=== PATIENT | female | born 1980 | race Caucasian/White ===

== ENCOUNTER → 2018-04-14 13:48 | Outpatient (REF) | payer OTHER, SELFPAY ==
[2018-04-14 14:40] LABS: Basophils # 0.1 K/mm3 (0-0.2); Basophils % 0.5 % (0.1-2.0); Eosinophils # 0.4 K/mm3 (0.0-0.4); Eosinophils % 3.1 % (0.1-12.0); Hematocrit 44.5 % (37.0-47.0); Hemoglobin 14.5 g/dL (12.2-16.2); Lymphocytes # 3.5 K/mm3 (0.7-4.5); Lymphocytes % 29.9 K/mm3 (10-50); Mean Corpuscular HGB Conc 32.7 g/dL (31.8-35.4); Mean Corpuscular Hemoglobin 29.5 pg (27.0-31.2); Mean Corpuscular Volume 90.3 fl (81-99); Monocytes # 0.6 K/mm3 (0.1-1.0); Monocytes % 5.1 % (1.7-9.3); Neutrophils # 7.1 K/mm3 (1.8-7.8); Neutrophils % 61.5 % (37.0-80.0); Platelet Count 270 K/mm3 (142-424); Red Blood Count 4.92 M/mm3 (4.20-5.40); Red Cell Distribution Width 13.2 % (11.5-17.5); White Blood Count 11.6 K/mm3 (4.8-10.8)
[2018-04-14 15:30] LABS: Alanine Aminotransferase 59 U/L (12-78); Albumin Level 3.7 gm/dL (3.4-5.0); Alkaline Phosphatase 81 U/L (46-116); Anion Gap 14.4 mEq/L (5-15); Aspartate Amino Transferase 34 U/L (15-37); Bilirubin,Total 0.9 mg/dL (0.2-1.0); Blood Urea Nitrogen 10 mg/dL (7-18); Calcium 8.9 mg/dL (8.5-10.1); Carbon Dioxide 27 mmol/L (21.0-32.0); Chloride 104 mmol/L (98-107); Chol/HDL Ratio 3.4 (1-3.5); Cholesterol 140 mg/dL (140-200); Creatinine,Serum 0.59 mg/dL (0.55-1.02); Estimated Glomerular Filt Rate 114 ml/min (>60); GFR (African American) 138 ML/MIN (>60); Globulin 3.7 gm/dl (1.3-3.2); Glucose 150 mg/dL (74-106); HDL Cholesterol 41 mg/dL (29-89); LDL Cholesterol 90 mg/dL (0-130); Potassium 4.4 mmoL/L (3.5-5.1); Sodium 141 mmol/L (136-145); Thyroid Stimulating Hormone 0.99 uIU/ml (0.358-3.740); Total Protein,Serum 7.4 gm/dL (6.4-8.2); Triglycerides 47 mg/dL (30-200); VLDL Cholesterol 9 mg/dL (0-40)
[2018-04-16 09:27] LABS: Vitamin D 25 Hydroxy 52.3 ng/mL (30.0-100.0)
== END ==
LOC: LAB 13:48
PROVIDERS: Visit Provider Nurse Practitioner Family
DX: R53.83 Other fatigue (principal); Z76.89 Persons encountering health services in other specified circumstances; R03.0 Elevated blood-pressure reading, without diagnosis of hypertension
CPT/HCPCS: 80053; 80061; 82652; 83036; 84436; 84443; 85025

== ENCOUNTER → 2018-06-01 07:58 | Outpatient (CLI) | payer OTHER, SELFPAY ==
--- NOTE | 2018-06-01 08:00 | AS_ITS ---
Renal Arterial Duplex Indications: 405.91 Unspecified renovascular hypertension. IMPRESSIONS 1. Normal bilateral renal artery evaluation. 2. The right renal artery appears normal. 3. The left renal artery appears normal. History: Risk factors: Hypertension. Complete renal arterial duplex. Duplex scan and Doppler flow study including spectral analysis, color and mclaughlin scale imaging. Height: Height: 152.4cm. Height: 60in. Weight: Weight: 120.2kg. Weight: 264.4lb. Body mass index: BMI: 51.8kg/m^2. Body surface area: BSA: 2.34m^2. Patient status: Outpatient. Tables: Arterial flow: + +--------+--------+ Location V sys V ed + +--------+--------+ Right renal - proximal 50.4cm/s 18.5cm/s + +--------+--------+ Right renal - mid 47.1cm/s 14.6cm/s + +--------+--------+ Right renal - distal 48cm/s 17.8cm/s + +--------+--------+ Left renal - proximal 99.3cm/s 34cm/s + +--------+--------+ Left renal - mid 85.5cm/s 31.4cm/s + +--------+--------+ Left renal - distal 93.8cm/s 20.4cm/s + +--------+--------+ Right renal-origin 119cm/s 44.8cm/s + +--------+--------+ Left renal-origin 87.1cm/s 32cm/s + +--------+--------+ Aorta-Prox 112cm/s -------- + +--------+--------+ Renal anatomy: + +-------+-------+ Left Right + +-------+-------+ Long axis 13.71cm 11.71cm + +-------+-------+ Short axis 8.5cm 8.1cm + +-------+-------+ Cortical thickness 2.5cm 1.9cm + +-------+-------+ Velocity ratios: + +-----+ V sys + +-----+ Right renal/aortic 1.1 + +-----+ Left renal/aortic 0.9 + +-----+ (Report amended ) Electronically signed by: Cornel Johnson [id number]
== END ==
PROVIDERS: PCP Emergency Medicine; Visit Provider Nurse Practitioner Family
DX: R03.0 Elevated blood-pressure reading, without diagnosis of hypertension (principal)
CPT/HCPCS: 93976

== ENCOUNTER → 2018-07-20 13:49 | Outpatient (CLI) | payer OTHER, SELFPAY ==
[2018-07-20 14:12] LABS: Hemoglobin A1C 9.3 % (0.0-7.0)
== END ==
PROVIDERS: Visit Provider Nurse Practitioner Family
DX: R73.9 Hyperglycemia, unspecified (principal); I10 Essential (primary) hypertension; R00.0 Tachycardia, unspecified
CPT/HCPCS: 83036

== ENCOUNTER → 2018-07-25 09:44 | Outpatient (CLI) | payer OTHER, SELFPAY | PROVIDERS: PCP Nurse Practitioner Family; Visit Provider Nurse Practitioner Family | DX: Z71.3 Dietary counseling and surveillance (principal); E11.9 Type 2 diabetes mellitus without complications | CPT/HCPCS: 97802 ==

== ENCOUNTER → 2018-08-04 09:46 | Outpatient (CLI) | payer OTHER, SELFPAY ==
--- NOTE | 2018-08-04 09:49 | CA_ITS ---
PROCEDURE: 2-D M-mode and color Doppler study INDICATIONS FOR THE TEST: Chest pain+ COPD Heart Murmur Tobacco Smoking Palpitations+ Fatigue Syncope Edema Hypertension+Diabetes Mellitus+ Rheumatic Fever SOB CARMONA+Obesity+Hyperlipidemia+ Family History HD Additional History PATIENT INFORMATION HEIGHT: 60 WEIGHT: 255 GENDER: Female B/P: 123/86 2-D/M-MODE INTERPRETATION: 2-D MEASUREMENTS OBSERVED VALUES IN CMS Right Ventricular Dimension (RVDd) 2.4 Interventricular Septum (Thickness)(IVsd) 1.0 Left Ventricular Internal Dimensions(LVIDd) 4.3 Left Ventricular Posterior Wall (Thickness)(LVPWd) 1.0 Aortic Root 2.9 Aortic Cusp Separation 2.1 Left Atrial Dimensions (LAD) 3.3 2D 1. Left atrium is normal size, left ventricle is normal size, left ventricle wall thickness is upper limit of normal, there is preserved left ventricular systolic function, visually estimated ejection fraction 55% with no regional wall motion abnormality. 2. The right atrium and right ventricle are normal size and contractility. 3. The aortic valve is minimally thickened and fibrosed. 4. The mitral and tricuspid valve leaflets are minimally thickened. 5. The pulmonic valve is poorly visualized. 6. No significant pericardial effusion noted. DOPPLER INTERROGATION: Doppler interrogation of the aortic, mitral and tricuspid valvular presence of mild mitral and tricuspid regurgitation, tricuspid regurgitation jet velocity is inadequate for calculation of the right ventricular systolic pressure, diastolic parameters are within normal range. CONCLUSION: 1. Normal left ventricular size, preserved left ventricular systolic function, visually estimated ejection fraction 55% with no regional wall motion abnormality, diastolic parameters are within normal range. 2. Thickened and calcified aortic valve without aortic stenosis aortic insufficiency. 3. Mild mitral and tricuspid regurgitation 4. No significant pericardial effusion noted.
== END ==
PROVIDERS: PCP Nurse Practitioner Family; Visit Provider Internal Medicine
DX: R07.9 Chest pain, unspecified (principal); R00.0 Tachycardia, unspecified; R00.2 Palpitations; E11.8 Type 2 diabetes mellitus with unspecified complications; Z82.49 Family history of ischemic heart disease and other diseases of the circulatory system
CPT/HCPCS: 93017; 93306

== ENCOUNTER → 2018-11-23 14:25 | Outpatient (CLI) | payer OTHER, SELFPAY ==
[2018-11-23 16:10] LABS: Hemoglobin A1C 6.4 % (0.0-7.0)
[2018-11-25 10:26] LABS: Creatinine, Urine 106.6 mg/dL (Not Estab.); Microalbumin, Urine 8.6 ug/mL (Not Estab.)
== END ==
PROVIDERS: Visit Provider Nurse Practitioner Family
DX: E11.9 Type 2 diabetes mellitus without complications (principal); Z79.84 Long term (current) use of oral hypoglycemic drugs
CPT/HCPCS: 82043; 82570; 83036

== ENCOUNTER → 2019-01-08 17:05 | Outpatient (CLI) | payer OTHER, SELFPAY | PROVIDERS: Visit Provider Podiatrist | DX: B35.1 Tinea unguium (principal) | CPT/HCPCS: 87102; 87206; 87220 ==

== ENCOUNTER → 2019-11-02 09:05 | Outpatient (CLI) | payer OTHER, SELFPAY ==
--- NOTE | 2019-11-02 09:16 | MM_ITS ---
PROCEDURE: MM DIG SCREENING MAMM BI W/CAD Digital Breast Tomosynthesis Included CLINICAL INDICATION: SCREENING There is no personal or family history of breast cancer. This is a baseline study. COMPARISON: No exams were available for comparison TECHNIQUE: Standard CC and MLO images and 3D Tomosynthesis was obtained. R2 CAD reviewed. FINDINGS: Breasts are composed primarily of fat with minimal scattered fibroglandular densities in each breast. There is somewhat curious focal prominent venous structures in the inner quadrant left breast. In addition there is a cyst small oval benign-appearing nodule adjacent to the prominent venous elements. Since this is a baseline study recommend the patient return for ultrasound examination of both of these areas for better evaluation. There are no suspicious microcalcifications. There are normal appearing nodes in the right axilla. IMPRESSION: Fatty type breast parenchyma with asymmetric densities left breast BI-RAD Category: 0 Need Additional Imaging Evaluation FOLLOW-UP: IMM Immediate Follow-up Recommended (A letter has been sent to the patient regarding results of the study.) Dictated by: Dr. Sean Herr MD 11/05/2019 14:[address] Sean Herr MD in [place] 11/05/2019 14:22
== END ==
PROVIDERS: PCP Nurse Practitioner Family; Visit Provider Nurse Practitioner
DX: Z12.31 Encounter for screening mammogram for malignant neoplasm of breast (principal)
CPT/HCPCS: 77063; 77067

== ENCOUNTER → 2019-11-14 08:40 | Outpatient (CLI) | payer OTHER, SELFPAY ==
--- NOTE | 2019-11-14 08:51 | US_ITS ---
PROCEDURE: US BREAST RT COMPLETE CLINICAL INDICATION: BREAST LUMP COMPARISON: MM DIG SCREENING MAMM BI W/CAD from 11/02/2019 FINDINGS: No cystic or solid lesions demonstrated. There are small nodes in the axilla IMPRESSION: Unremarkable right breast ultrasound Dictated by: Cornel Johnson MD 11/15/2019 15:17 Electronically signed by Cornel Johnson MD in [place] 11/15/2019 15:17
--- NOTE | 2019-11-14 08:51 | US_ITS ---
PROCEDURE: US BREAST LT COMPLETE CLINICAL INDICATION: BREAST LUMP Abnormal mammogram COMPARISON: MM DIG SCREENING MAMM BI W/CAD from 11/02/2019 US BREAST RT COMPLETE from 11/14/2019 FINDINGS: On the mammogram there is a trident shaped density in the medial aspect of the left breast as well as a 4 mm nodular opacity in the upper inner aspect of the left breast. The trident shaped density corresponds to a branching tubular structure on the ultrasound consistent with a dilated duct. There was some low level echoes within the dilated duct toward the nipple with some increased echogenicity with questionable nodularity. There is a cyst measuring approximately 3 mm at the 10 o'clock region which may correspond to the small opacity on the mammogram. IMPRESSION: There is a dilated branching duct in the medial aspect of the left breast with questionable nodularity toward the nipple region of the duct raising the suspicion of a papilloma with ductal obstruction. The nodular area on the ultrasound is questionable. Suggest MRI of the breast with contrast for further evaluation. There is an additional smaller cystic area in the upper inner left breast as well. Dictated by: Cornel Johnson MD 11/23/2019 12:51 Electronically signed by Cornel Johnson MD in [place] 11/23/2019 12:51
== END ==
PROVIDERS: PCP Nurse Practitioner; Visit Provider Nurse Practitioner
DX: R92.8 Other abnormal and inconclusive findings on diagnostic imaging of breast (principal)
CPT/HCPCS: 76641

== ENCOUNTER → 2021-01-12 11:18 | Outpatient (CLI) | payer OTHER, SELFPAY ==
[2021-01-13 08:09] LABS: Hep A Ab, IgM Negative (Negative); Hepatitis B Core Antibody IgM Negative (Negative); Hepatitis B Surface Antigen Negative (Negative); Hepatitis C Antibody <0.1 s/co ratio (0.0-0.9)
== END ==
PROVIDERS: Visit Provider Physician Assistant
DX: Z20.5 Contact with and (suspected) exposure to viral hepatitis (principal)
CPT/HCPCS: 36415; 80074

== ENCOUNTER → 2023-02-19 08:03 | Outpatient (CLI) | payer OTHER, MEDICAID, SELFPAY ==
[2023-02-19 08:39] LABS: Basophils # 0.1 K/mm3 (0-0.2); Basophils % 0.8 % (0.1-2.0); Eosinophils # 0.5 K/mm3 (0.0-0.4); Eosinophils % 4.1 % (0.1-12.0); Hematocrit 44.4 % (37.0-47.0); Hemoglobin 14.6 g/dL (12.2-16.2); Lymphocytes % 30.8 % (10-50); Mean Corpuscular HGB Conc 32.8 g/dL (31.8-35.4); Mean Corpuscular Hemoglobin 29.1 pg (27.0-31.2); Mean Corpuscular Volume 88.8 fl (81-99); Mean Platelet Volume 8.9 fl (7.4-10.4); Monocytes # 0.6 K/mm3 (0.1-1.0); Monocytes % 4.7 % (1.7-9.3); Neutrophils # 7.7 K/mm3 (1.8-7.8); Neutrophils % 59.6 % (37.0-80.0); Platelet Count 241 K/mm3 (142-424); Red Blood Count 5.01 M/mm3 (4.20-5.40); Red Cell Distribution Width 13.3 % (11.5-17.5); White Blood Count 12.9 K/mm3 (4.8-10.8)
[2023-02-19 09:04] LABS: INR 1.14 (0.9-1.1); Prothrombin Time 12.2 seconds (10.1-12.5)
[2023-02-19 09:11] LABS: Alanine Aminotransferase 84 U/L (12-78); Albumin/Globulin Ratio 1.3 (1.1-1.8); Alkaline Phosphatase 75 U/L (38-126); Anion Gap 15.3 mEq/L (5-15); Aspartate Amino Transferase 86 U/L (14-36); Bilirubin,Total 0.7 mg/dl (0.2-1.3); Blood Urea Nitrogen 10 mg/dl (7-17); Calcium 9.6 mg/dl (8.4-10.2); Carbon Dioxide 26 mmol/L (22.0-30.0); Chloride 103 mmol/L (98-107); Estimated Glomerular Filt Rate 109 ml/min (>60); GFR (African American) 132 ML/MIN (>60); Globulin 3.1 g/dL (1.3-3.2); Glucose 161 mg/dl (74-100); Potassium 4.3 mmoL/L (3.5-5.1); Sodium 140 mmol/L (136-145); Total Protein,Serum 7.1 g/dl (6.3-8.2)
[2023-02-19 17:03] LABS: Iron 72 ug/dL (37-170)
[2023-02-19 17:12] LABS: Total Iron Binding Capacity 324 ug/dL (265-497)
[2023-02-19 17:40] LABS: Ferritin 74.9 ng/ml (6.24-137)
[2023-02-20 08:09] LABS: HBsAg Screen Negative (Negative); HCV Ab Non Reactive (Non Reactive); Hep A Ab, IGM Negative (Negative); Hep B Core Ab, IgM Negative (Negative)
[2023-02-20 13:00] LABS: Ceruloplasmin 31.2 mg/dL (19.0-39.0); Immunoglobulin A, Qn 409 mg/dL (87-352); Immunoglobulin G, Qn 1009 mg/dL (586-1602); Immunoglobulin M, Qn 148 mg/dL (26-217)
[2023-02-22 13:04] LABS: Actin (Smooth Muscle) Antibody 7 Units (0-19); Endomysial IgA Antibody Negative (Negative); Liver-Kidney Microsomal Ab 1.1 Units (0.0-20.0); Mitochondrial (M2) Antibody <20.0 Units (0.0-20.0)
[2023-02-22 21:34] LABS: Angiotensin Converting Enzyme 32 U/L (14-82); Deamidated Gliadin Abs, IgA 8 units (0-19); Deamidated Gliadin Abs, IgG 2 units (0-19); Tissue Transglutaminase IgA Ab 4 U/mL (0-3); Tissue Transglutaminase IgG Ab <2 U/mL (0-5)
[2023-02-23 07:21] LABS: Reticulin IgA Antibody Negative titer (Neg:<1:2.5)
[2023-02-23 12:45] LABS: Antinuclear Antibodies, IFA Negative (.)
[2023-02-23 16:13] LABS: Alpha-1-Antitrypsin 161 mg/dL (101-187)
[2023-03-07 11:34] LABS: Fibrosis Score 0.39; Fibrosis Stage F1-F2; Steatosis Score 0.72
[2023-03-07 11:35] LABS: NASH Grade N3; NASH Score 0.76; Steatosis Grade S2-S3
[2023-03-07 11:36] LABS: Alpha 2-Macroglobulins, Qn 292; Apolipoprotein A-1 94; Bilirubin, Total 0.4; Haptoglobin 159
[2023-03-07 11:37] LABS: ALT (SGPT) P5P 77; GGT 50
[2023-03-07 11:38] LABS: AST (SGOT) P5P 83; Cholesterol, Total 133; Triglycerides 85
[2023-03-07 11:39] LABS: Glucose 163
== END ==
PROVIDERS: PCP Nurse Practitioner; Visit Provider Nurse Practitioner Family
DX: K76.0 Fatty (change of) liver, not elsewhere classified (principal); R94.5 Abnormal results of liver function studies
CPT/HCPCS: 36415; 80053; 80074; 81256; 82103; 82104; 82164; 82390; 82728; 82784; 83516; 83540; 83550; 85025; 85610; 86038; 86255; 86256; 86376

== ENCOUNTER 2024-01-16 14:57 | Outpatient (CLI) | payer OTHER, SELFPAY | END 2024-01-16 23:59 | disposition home or self-care (01) | LOC: RT 14:58 | PROVIDERS: PCP Nurse Practitioner; Visit Provider Physician Assistant | DX: R00.2 Palpitations (principal); R00.0 Tachycardia, unspecified | CPT/HCPCS: 93270 ==

== ENCOUNTER 2024-02-23 07:12 | Outpatient (CLI) | payer OTHER, SELFPAY ==
--- NOTE | 2024-02-23 | CA_ITS ---
APPROVED REPORT Exam: Exercise Treadmill Technologist: Elda Palencia, Ht: 5 ft 0 in Wt: 224 lbs BSA: 1.96 m2 HR: 94 bpm BP: 118/79 mmHg Rhythm: NSR Indications: Abn EKG, PVCs Medical History Medications: Lisinopril,,,,, Aspirin,,,,, Lovastatin,,,,, Metformin,,,,, Vitamin E,,,,, Glipizide,,,,, BisOPROLOL,,,,, CetIRIZINE,,,,, Liraglutide,,,,, Stress Test Details Test: [place] HR Resting HR: 104 bpm Max Heart Rate (APMHR): 176 bpm Max HR Achieved: 166 bpm Target HR (85% APMHR): 150 bpm % of APMHR: 94 Recovery HR: 109 bpm HR response to stress: Normal HR response to stress BP Resting BP: 110.0/77.0 mmHg Max BP: 175.0/103.0 mmHg Recovery BP: 142.0/93.0 mmHg BP response to stress: Normal blood pressure response to stress. ECG Resting ECG: NSR, rightward axis Stress EC.[address] depression Arrhythmia: PVCs Recovery ECG: Return to baseline within 3 minutes of recovery Recovery Arrhythmia: PVCs Clinical Exercise duration: 06:01 min Highest Stage Achieved: II Exercise capacity: 7.0 METs Overall Exercise Capacity for Age: Fair Stress ECG Conclusion Walked 6:00 on [place] Protocol. Max HR: 166 % of PM: 94% Max BP: 175/103 METs: 7.0 Test stopped due to: SOA, Fatigue Symptoms: No CP. Arrhythmias/Ectopy: Occasional PVC. ST-T Changes: 0.[address] depression Conclusion: Fair exercise capacity compared to age and sex matched peers. Within normal GXT. Myoview images reported separately. Test Summary REST . . . . . . . Resting REST . . . . . . . Standing REST 04:51 0.0 0.0 104 . 110/ 77 . . Stage 1 01:00 10.0 1.7 130 . . . . Stage 1 02:00 10.0 1.7 147 . . . . Stage 1 03:00 10.0 1.7 150 . 172/ 80 . . Stage 2 01:00 12.0 2.5 158 . . . . Stage 2 . . . . . . . Myoview Injected Stage 2 02:00 12.0 2.5 162 . . . . Stage 2 03:00 12.0 2.5 165 . . . . Stage 3 00:01 14.0 3.4 165 . . . Stop exercise at 06:01 RECOVERY 01:00 0.0 0.0 138 . . . . RECOVERY 02:00 0.0 0.0 112 . . . . RECOVERY 03:00 0.0 0.0 110 . 175/103 . . RECOVERY 04:00 0.0 0.0 111 . 140/ 92 . . RECOVERY 05:00 0.0 0.0 109 . 140/ 92 . . RECOVERY 05:27 0.0 0.0 110 . 142/ 93 . . Electronically signed by : Fatemeh Valentin MD 02/26/2024 23:55:20
--- NOTE | 2024-02-23 07:13 | CA_ITS ---
APPROVED REPORT EXAM: Comprehensive 2D, Doppler, and color-flow Echocardiogram Senior Windows Systems Administrator: Mercedes Flowers RDCS Ht: 55 ft 0 in Wt: 224lbs BSA: 11.14 BP: 124/94 mmHg Indications: SVT ABN EKG PALPS HTN HTN M-Mode Dimensions RVDd 1.94 cm (0.9-2.6) LA Diam 3.42 cm (1.9-4.0) LVDd 4.73 cm (3.5-5.7) LVDs 3.38 cm (3.5-5.7) IVSd 0.81 cm (0.6-1.1) PWd 0.66 cm (0.6-1.1) EF (Teich) 55.00% FS 28.50% EDV (Teich) 103.90 mL TAPSE 1.33 (<1.7) ESV (Teich) 46.80 mL LV Diastology E Decel Time 160 (160-240 msec) E/A Ratio 5.9 Mitral Valve MV E Max Salinas. 82.0 (40-130 cm/s) MV A Velocity 14.0 (40-130 cm/s) E/A Ratio 5.97 MV PHT 47.0 ms Left Ventricle The left ventricle is normal size. The left ventricular systolic function is mildly reduced. There is increased LV wall thickness. There is mild global hypokinesis present. Transmitral Doppler flow pattern suggests impaired LV relaxation. LVEF is 45%. Right Ventricle The right ventricle is mildly dilated. Right ventricle is mildly hypokinetic. Atria The left atrium size is normal. The right atrium size is normal. There is no Doppler evidence of interatrial shunt. Aortic valve opens well. Aortic Valve There is no aortic valvular stenosis. No aortic regurgitation is present. Mitral Valve The mitral valve is normal in structure. No evidence of mitral valve stenosis. There is no mitral valve regurgitation noted. Tricuspid Valve The tricuspid valve leaflets are thin and pliable. Trace tricuspid regurgitation. There is insufficient TR jet to estimate RVSP. Pulmonic Valve The pulmonary valve is normal in structure. Trace pulmonic regurgitation. Great Vessels The aortic root is normal in size. The ascending aorta is not well-visualized. IVC is normal in size and collapses >50% with inspiration. Pericardium There is no pericardial effusion. Other Information Study Quality: Fair Conclusion Mildly reduced LV systolic function (LVEF 45%) Mildly dilated RV with mild reduction in RV function. No significant valvular stenosis or regurgitation. In the setting of biventricular dysfunction, further evaluation with cardiac MRI (cardiomyopathy protocol) is suggested, if clinically feasible. Electronically signed by : Fatemeh Valentin MD 02/27/2024 00:00:57
--- NOTE | 2024-02-23 07:13 | NM_ITS ---
APPROVED REPORT Exam: Nuclear Stress Test Indication: high heart rate..high cholesterol..family hx Patient Location: Outpatient Stress Tech: Elda Palencia NC Tech:JO Choi RT(R)(N) Ht: 5 ft 0 in Wt: 223 lbs Bra Size: 44dd HR: 104 bpm BP: 110/77 mmHg BSA: 1.96 m2 TID: 1.35 History: high heart rate..high cholesterol..family hx Procedure: Patient exercised on [place] protocol 6:01 minutes and sec, resting heart rate 104 bpm, resting blood pressure 110/77 mmHg, with exercise maximum heart rate achived was 166 bpm which is 94 % of the maximum predicted heart rate and blood pressure was 175/103 mmHg. Test was stopped due to fatigue. Patient denied any complaint of chest pain. Patient has Fair exercise capacity, achieved 7.0 METs of workload on treadmill, the blood pressure response to exercise was Normal. Cardiac Stress and Resting SPECT Images: Cardiac Stress and Resting SPECT images were obtained using technetium 99m Myoview 32.8 mCi stress and 10.58 mCi at rest. Resting and stress imaging in supine and prone positions demonstrate no evidence of fixed or reversible perfusion defects. There is increase in transient ischemic dilatation ratio (TID 1.35), suggestive of possible multivessel disease or balanced ischemia. Gated imaging demonstrates normal global and regional LV systolic function. LVEF is calculated at 43%. Conclusion: No evidence of fixed or reversible perfusion defects. There is increase in transient ischemic dilatation ratio (TID 1.35), suggestive of possible multivessel disease or balanced ischemia. Gated imaging demonstrates normal global and regional LV systolic function. LVEF is calculated at 43%. Electronically signed by : Fatemeh Valentin MD 02/26/2024 23:57:31
[2024-02-23] MEDS: ISOTOPE MYOVIEW (PER STUDY) 1 DOSE IV (09:51)
[2024-02-23] MEDS: SODIUM CHLORIDE 0.9% 10ML SYR (RAD ONLY) 10 ML IV ×2 (09:51)
== END 2024-02-23 23:59 | disposition home or self-care (01) ==
LOC: RAD 07:13
PROVIDERS: PCP Nurse Practitioner; Visit Provider Physician Assistant
DX: R00.2 Palpitations (principal); I49.3 Ventricular premature depolarization; R00.0 Tachycardia, unspecified; R94.31 Abnormal electrocardiogram [ECG] [EKG]
CPT/HCPCS: 78452; 93017; 93018; 93306; A9502

== ENCOUNTER 2024-03-20 07:25 | Outpatient (CLI) | payer OTHER, SELFPAY ==
[2024-03-20] VITALS (7 sets, daily range): BP systolic 96–131; BP diastolic 61–78; PULSE 64–97; RESP 18; TEMP 36.2; O2SAT 98–99; BMI 43.9
--- NOTE | 2024-03-20 07:26 | CT_ITS ---
APPROVED REPORT Senior Architect/Design Manager: CLINICAL INDICATION Chest Pain TECHNIQUE Image Acquisition: A 128 slice MDCT scanner ([employer]) was used for data acquisition. A noncontrast coronary calcium scan was performed. A CT attenuation threshold of 130 Hounsfield units (HU) was used for the detection of calcium in contiguous voxels of 1 sq mm in area to be counted as individual lesions. Bolus tracking in the ascending aorta with a threshold of 180 HU was performed. Immediately afterwards, ECG synchronized cardiac CT was then performed from the cardiac base to apex using retrospective gating with ECG tube current modulation. A total of 85 mL of Isovue 370 mg/mL contrast medium was administered at 5 mL/sec followed by a saline flush using a biphasic injection protocol. A tube voltage of 120 KVp was used. The patient received the following medications prior to the cardiac CT. 150 mg of oral metoprolol 15 mg of oral ivabradine The average heart rate at the time of acquisition was 67 bpm and regular. Image Reconstruction Transaxial images were reconstructed at 0.67 mm slide thickness. Data was reviewed interactively on an advanced workstation capable of 2 and 3-dimensional displays in all conventional reconstruction formats, including multiplanar reformations, maximum intensity projections, curved multiplanar reformations, and volume rendered reconstructions. When applicable, selected routine images describing the relevant coronary anatomy and pathology were saved and sent to PACS. Complications None Technical Quality Overall image quality was good. Coronary artery opacification was adequate. Total DLP (Dose-Length Product) is 1232.4 mGy-cm. The reported value represents the total of one or more individual components during the CT acquisition of this date and at this time, and as such, the same value may appear in more than one CT report depending on the interpreting/reporting physicians. COMPARISON None FINDINGS CT Coronary Calcium Scoring LMA (Left Main Artery) = 0 LAD (Left Anterior Descending) = 0 LCX (Left Coronary Circumflex) = 0 RCA (Right Coronary Artery) = 0 Total Calcium Score = 0 using the AJ-130 method. The interpretation of the calcium heart score is based on the following continuum*: 0 = no calcified plaque detected (risk of coronary artery disease is very low ??? less than 5%) 1-10 = calcium detected in extremely minimal levels (risk of coronary diseases is still low ??? less than 10%) 11-100 = mild levels of plaque detected with certainty (mild or minimal narrowing of heart arteries is likely) 101-400 = definite,at least moderate levels of plaque detected (relatively high risk of a heart attack within 3-5 years) >401-999 = extensive levels of plaque detected (high risk of heart attack, high levels of vascular disease are present, high likelihood of at least one significant coronary narrowing) *The calcium heart score quantifies the burden of coronary calcification/plaque in the coronary arteries. The calcium heart score is not able to evaluate the presence or burden of non-calcified (i.e. soft) plaque. There is no identifiable calcification in the aortic valve, mitral annulus or mitral valve, pericardium, or myocardium. Coronary CT Angiography The coronary arterial system is right dominant. Quantitative Stenosis Grading: Left Main (LM): The left main originates normally from the left sinus of Valsalva. The LM bifurcates into the left anterior descending artery and left circumflex artery. The LM is patent with no evidence of atherosclerosis. Left Anterior Descending (LAD) and Diagonal Branches: The LAD gives off 2 diagonal branch(es). The LAD and its branches are patent with no evidence of atherosclerosis. There is no evidence of LAD-myocardial bridge. Left Circumflex (LCX) and Obtuse Marginals (OM): The LCX gives off 1 Obtuse Marginal (OM) branch(es). The LCX and its branches are patent with no evidence of atherosclerosis. Right Coronary Artery (RCA): The RCA originates normally from the right sinus of Valsalva. The RCA gives off a posterior descending artery (PDA) and posterolateral (PL) branches. The RCA and its branches are patent with no evidence of atherosclerosis. Non-Coronary Cardiac Findings: Analysis of the left ventricular (LV) structure and function was performed after 3-D reconstruction of the LV from axial images, with user-corrected automatic contouring for assessment of LV volumes and user-defined reconstruction from oblique planes for measurement of 3-D cardiac structure and function. -The left ventricle systolic function is normal. -There is no left atrial appendage filling defect. Two right pulmonary veins and two left pulmonary veins drain normally into the left atrium. -No pericardial thickening or calcification. -Central and branch pulmonary arteries in the [id number] are unremarkable. -Thoracic aorta within the visualized thoracic aortic-branches in the [id number] is unremarkable. Extracardiac Structures No significant extra-cardiac findings. Note, however, that this study is focused on the cardiac findings. IMPRESSION -Absence of coronary calcification with an Agatston score = 0 using the AJ-130 method. -No evidence of significant flow-limiting atherosclerosis of the coronary arteries. -No evidence of coronary anomalies or myocardial bridges. -CAD-RADS 0. Management recommendations per ACC/AHA guidelines*, as clinically appropriate. *Recommendations: CAD RADS 0: Reassurance. Consider non-atherosclerotic causes of chest pain. CAD RADS 1: Consider non-atherosclerotic causes of chest pain. Consider preventive therapy and risk factor modification. CAD RADS 2: Consider non-atherosclerotic causes of chest pain. Consider preventive therapy and risk factor modification, particularly for patients with nonobstructive plaque in multiple segments. CAD RADS 3: Consider further functional testing. Consider symptom-guided anti-ischemic and preventive pharmacotherapy as well as risk factor modification per published guideline statements. CAD RADS 4A: Consider further functional testing or invasive coronary angiography with revascularization per published guideline statements. Consider symptom-guided anti-ischemic and preventive pharmacotherapy as well as risk factor modification per published guideline statements. CAD RADS 4B: Invasive coronary angiography recommended with revascularization per published guideline statements. Consider symptom-guided anti-ischemic and preventive pharmacotherapy as well as risk factor modification per published guideline statements. CAD RADS 5: Consider invasive angiography and/or viability assessment with revascularization per published guideline statements. Consider symptom-guided anti-ischemic and preventive pharmacotherapy as well as risk factor modification per published guideline statements. CRITICAL RESULT None COMMUNICATION Per this written report The coronary and cardiac findings of this CCTA were reviewed, reported, and signed by David Valentin MD (Immigration Patrol Inspector) Conclusion Electronically signed by : Fatemeh Valentin MD 03/20/2024 12:52:20
[2024-03-20 07:51] LABS: Urine Pregnancy, HCG Qual. Negative (Negative)
[2024-03-20] MEDS: IVABRADINE HCL 7.5MG TABLET PO (07:55)
[2024-03-20] MEDS: METOPROLOL TARTRATE 25MG TABLET 25 MG (07:57)
[2024-03-20 07:58] LABS: POC Glucose,Bedside 119 (70-110)
[2024-03-20] MEDS: METOPROLOL TARTRATE 50MG TABLET PO ×2 (07:58→08:46)
--- NOTE | 2024-03-20 10:02 | PC.NURSE ---
To CT, VSS but no Nitro to be given for low BP. Will proceed with test.
--- NOTE | 2024-03-20 10:18 | PC.NURSE ---
Pt back to post for recovery, BP 105/65, HR 71. No S/S. Pt without C/O.
[2024-03-20] MEDS: SODIUM CHLORIDE 0.9% 10ML SYR (RAD ONLY) 10 ML IV (10:20)
[2024-03-20] MEDS: IOPAMIDOL-370 (76%);100ML BOTTLE 85 ML IV (10:20)
[2024-03-20] MEDS: 0.9 % SODIUM CHLORIDE 50 ML VIAL IV (10:20)
--- NOTE | 2024-03-20 10:48 | PC.NURSE ---
Pt doing well, 98/86. HR 68. Denies dizziness or light headedness.
--- NOTE | 2024-03-20 11:04 | PC.NURSE ---
Pt says feels good, no dizziness or any C/O. discharge instructions reviewed, verbalized understanding
== END 2024-03-20 11:06 | disposition home or self-care (01) ==
PROVIDERS: PCP Nurse Practitioner; Visit Provider Physician Assistant
DX: R07.9 Chest pain, unspecified (principal); R93.1 Abnormal findings on diagnostic imaging of heart and coronary circulation; I10 Essential (primary) hypertension
CPT/HCPCS: 75574; 81025; 82962; Q9967

== ENCOUNTER 2024-04-25 10:16 | Outpatient (CLI) | payer OTHER, SELFPAY ==
--- NOTE | 2024-04-25 10:30 | MR_ITS ---
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 Software platform sequences were performed using the Siemens Acacia Livingo MR B19 platform. A set of three-plane, low-resolution, large [id number] localizers were initially acquired. Then axial, coronal, sagittal TrueFISP, as well as axial HASTE images, were obtained. These were followed by gated TrueFISP breathold cinematic sequences obtained in the short axis with 8 mm slices and 2 mm gaps, 2-chamber (vertical long axis), 3-chamber, 4-chamber (horizontal long axis). A bolus of contrast was injected intravenously with first-pass sequences obtained in the short axis and four-chamber planes. After approximately 10 minutes, a TI consulting software engineer sequence was performed to determine the optimal TI time. Using the optimized TI time, delayed contrast enhancement segmented inversion???recovery TurboFLASH sequences were obtained in the short axis, 2-chamber, 3-chamber, and 4-chamber projections. 2D-velocity phase mapping was performed. Functional parameters were calculated by offline analysis on an independent workstation ([employer] Platform, [email or web address]). Contrast: ProHance??? (Gadoteridol) FINDINGS MORPHOLOGY AND FUNCTION Left ventricle: The left ventricle is normal in size. The indexed left ventricular end-diastolic volume (LVEDVi) is 67 ml/m2 (reference range 57-105 ml/m2 in males, 56-96 ml/m2 in females). There is mild reduction in left ventricular systolic function. There is normal left ventricular wall thickness. There is mild hypokinesis of the distal inferolateral LV wall. The LV EF is calculated at 47.5% (reference range 57-77%). Right ventricle: The right ventricle is normal in size. The indexed right ventricular end-diastolic volume (RVEDVi) is 64 ml/m2 (reference range 61-121 ml/m2 in males, 48-112 ml/m2 in females). Normal right ventricular systolic function is present. RVEF is calculated at 53.8% (reference range 52-72% in males, 51-71% in females). Atria: The left atrium is normal in size. The maximum indexed left atrial volume is 31 ml/m2 (reference range 26-52 ml/m2 in males, 27-53 ml/m2 in females). The right atrium is normal in size. The maximum indexed right atrial volume is 22 ml/m2 (reference range 18-90 ml/m2). Aorta: The diameter of the aortic annulus is normal, measuring 27 mm (coronal view reference range 21-30 mm in males, 19-27 mm in females). The diameter of the aortic sinus is normal, measuring 33 mm (coronal view reference range 25-42 mm in males, 24-36 mm in females). The diameter of the sinotubular junction is normal, measuring 28 mm (coronal view reference range 18-32 mm in males, 18-28 mm in females). The diameters of the ascending and descending thoracic aorta are normal. Main pulmonary artery: The main pulmonary artery diameter is normal. Pericardium: The pericardial thickness is normal. The pericardial thickness measures 1.0 mm (normal < 4.0 mm). There is no pericardial effusion. VALVES The valvular morphologies in the visualized sequences appear normal. There is no significant valvular stenosis or regurgitation of the mitral, aortic, tricuspid, or pulmonic valve noted visually. Systolic anterior motion of the mitral valve is not visualized. Ratio of pulmonary to systemic flow, Qp:Qs ratio = 1.1 (normal < or = 1.2, hemodynamically significant shunt > 1.5), demonstrating no evidence of hemodynamically significant shunt. TISSUE CHARACTERIZATION Resting Perfusion: Normal myocardial blood flow at rest. No evidence of resting hypoperfusion. Myocardial Fibrosis and/or edema: There is a focus of subepicardial late gadolinium enhancement noted in the distal inferior lateral LV wall, consistent with presence of scarring in the corresponding region. There is also faint pericardial LGE present. OTHER No other significant findings are noted. However, this exam is focused on the cardiac structure and function. IMPRESSION Normal LV size with mild reduction in LV systolic function. LVEDVi= 67 ml/m2 and LVEF= 47.5%. Mild hypokinesis of the distal inferolateral LV wall. Normal RV size with normal RV systolic function. RVEDVi= 64 ml/m2 and RVEF= 53.8%. No atrial enlargement. Focus of subepicardial late gadolinium enhancement noted in the distal inferior lateral LV wall, consistent with presence of scarring in the corresponding region. There is also faint pericardial LGE present. Perfusion analysis demonstrates normal blood flow at rest with no evidence of resting hypoperfusion. Ratio of pulmonary to systemic flow, Qp:Qs ratio = 1.1 (normal < or = 1.2, hemodynamically significant shunt > 1.5), demonstrating no evidence of hemodynamically significant shunt. The above findings suggest mild LV cardiomyopathy (LVEF 47.5%) with presence of subepicardial LGE in the distal inferolateral LV wall and faint LGE in the pericardial wall. The above findings are nonspecific, but may be suggestive of new or recent/resolving myocarditis or myopericarditis. The differential diagnosis (less likely) also includes sarcoidosis in the appropriate clinical setting. No evidence of infiltrative or hypertrophic cardiomyopathy. No evidence of prior infarct. COMPARISON None CRITICAL RESULT None COMMUNICATION The above findings are communicated with the patient at the time of her routine outpatient cardiology clinic visit. The findings of this cardiac MR were reviewed, reported, and signed by David Valentin MD (Television Producer). Conclusion Electronically signed by : Fatemeh Valentin MD 05/10/2024 00:36:47
[2024-04-25 10:48] LABS: Blood Urea Nitrogen 9 mg/dl (7-17); Estimated Glomerular Filt Rate 134 ml/min (>60); GFR (African American) 162 ML/MIN (>60)
[2024-04-25] MEDS: SODIUM CHLORIDE 0.9% 50ML BAG 25 ML IV (11:38)
[2024-04-25] MEDS: SODIUM CHLORIDE 0.9% 10ML SYR (RAD ONLY) 10 ML IV (11:38)
[2024-04-25] MEDS: GADOTERIDOL INJ 20ML SYRINGE 20 ML IV (11:38)
== END 2024-04-25 23:59 | disposition home or self-care (01) ==
LOC: RAD 10:21
PROVIDERS: Internal Medicine; PCP Nurse Practitioner; Visit Provider Physician Assistant
DX: I50.20 Unspecified systolic (congestive) heart failure (principal); R94.31 Abnormal electrocardiogram [ECG] [EKG]; I10 Essential (primary) hypertension
CPT/HCPCS: 36415; 75561; 82565; 84520; A9576

== ENCOUNTER 2025-01-09 13:39 | Outpatient (CLI) | payer OTHER, SELFPAY ==
--- OUTSIDE RECORDS SUMMARY | 2025-01-09 13:43 | XMS_ITS | Data Portability ---
Author Organization [employer] [facility] Address [address] [place] [address] Care Team Providers Care Research Technician Name Role Phone CARLOS MANUEL ELLISON Court Assistant Assessment Encounter Date Assessment Date Assessment LastModified by Organization Details LastModified Time 12/17/2024 12/17/2024 Patient presented for medication refill. Patient tolerating medication well at current dose without adverse effects. Refilled as below. Discussed plan with patient, who expressed understanding . Follow up as noted below. [place] [id number] Not available 12/17/2024 16:31:29 Plan of Treatment Reminders Order Date Submit Date Provider Last Modified By Organization Details Last Modified Time Details Appointments FOLLOW UP 15 2024 10:45A M Thelma Jeter APRN Not available Not available Not available Lab test, urine [address], [address], 12/17/2024 17:34:26 HbA1c (hemoglob in A1c), blood [address], [address], 12/17/2024 17:34:26 lipid panel, serum 2024 025 [email or web address] [facility] [place], [address] [place] [address], [place], [address], 01/09/2025 09:16:39 CBC w/ auto diff 2024 025 [place] [address] [facility] [place], [address], 01/09/2025 09:16:39 CMP, serum or plasma 2024 025 [place] [address] [facility]), [address] [place] [address], [address], 01/09/2025 09:16:39 TSH + free T4, serum 2024 025 [email or web address]), [address] [place] [address], [address], 01/09/2025 09:16:39 cobalamin and folate panel, serum 2024 025 [place] [address] [facility]), [address] [place] [address], [address], 01/09/2025 09:16:40 vitamin D, 25-hydrox y, total, serum 2024 025 [place] [address] [facility]), [address] [place] [address], [address], 01/09/2025 09:16:40 Hepatitis C IgG Ab, qual, serum 2024 025 [place] [address] [facility]), [address] [place] [address], [address], 01/09/2025 09:16:40 HIV 1 + 2, meaningfu l use set 2024 025 [place] [address] [facility]), [address] [place] [address], [address], 01/09/2025 09:16:40 test, urine [address], [address], 09/18/2024 10:11:04 chlamydia trachomat is + neisseria gonorrhoe ae + trichomon as vaginalis rRNA panel, TAY+probe [address] [facility]), [address] [place] [address], [address], 09/20/2024 05:06:43 lipid panel, serum [address] [facility]), [address] [place] [address], [address], 09/20/2024 05:06:42 CMP, serum or plasma [address] [facility]), [address] [place] [address], [address], 09/20/2024 05:06:42 CBC w/ auto diff [address] [facility]), [address] [place] [address], [address], 09/20/2024 05:06:41 TSH + free T4, serum [address] [facility]), [address] [place] [address], [address], 09/20/2024 05:06:41 vitamin D, 25-hydrox y, total, serum [address] [facility]), [address] [place] [address], [address], 09/20/2024 05:06:43 HbA1c (hemoglob in A1c), blood [address], [address] [place] [address], [address], 09/18/2024 10:11:04 microalbu min/creat inine, mass ratio, urine [address], [address] [place] [address], [address], 09/18/2024 10:11:04 test, urine [address], [address], 06/26/2024 15:39:54 HbA1c (hemoglob in A1c), blood [address], [address], 06/26/2024 15:39:54 test, urine [address], [address], 03/23/2024 17:48:57 HbA1c (hemoglob in A1c), blood [address], [address], 03/23/2024 17:48:57 lipid panel, serum 2023 024 [employer] [facility], [address], [place], [address], 12/24/2023 06:13:42 test, urine [address], [address], 12/23/2023 11:39:29 CMP, serum or plasma 2023 024 [employer] [facility], [address], [place], [address], 12/24/2023 06:13:43 CBC w/ auto diff 2023 024 [facility], [address], [place], [address], 12/24/2023 06:13:44 TSH, serum or plasma 2023 024 [facility], [address], [place], [address], 12/24/2023 06:13:44 vitamin D, 25-hydrox y, total, serum 2023 024 [facility], [address], [place], [address], 12/24/2023 06:13:45 HbA1c (hemoglob in A1c), blood 2023 024 [email or web address] [facility], [address] [place] [address], [address], 12/23/2023 11:39:29 Referral None recorded. Procedures None recorded. Surgeries None recorded. Imaging MAMMO, screening , digital, bilateral - first available appt [address] ([facility]), [address], [place], [address], 07/13/2024 16:10:34 Medication Orders cetirizin e 10 mg tablet 2024 025 [facility], [address] [place] [address], [id number], 12/19/2024 12:01:33 medroxypr ogesteron e 150 mg/mL intramusc ular suspensio n 2024 025 [email or web address] Not available 12/17/2024 17:34:26 aspirin 81 mg chewable tablet 2024 025 [facility], [address] [place] [address], [id number], 12/19/2024 12:01:32 lovastati n 10 mg tablet [address] [facility], [address] [place] [address], [id number], 12/19/2024 12:01:32 glipizide 5 mg tablet [address] [facility], [address] [place] [address], [id number], 12/19/2024 12:01:32 metformin 1,000 mg tablet 2024 [address] [facility] [employer] [facility], [address] [place] [address], [id number], 12/19/2024 12:01:32 OneTouch Ultra Test strips [address] [facility], [address] [place] [address], [id number], 12/18/2024 12:44:28 Ozempic 1 mg/dose (4 mg/3 mL) subcutane ous pen injector 2024 [address] [facility] [facility] [employer] [facility], [address] [place] [address], [id number], 12/18/2024 12:49:30 cetirizin e 10 mg tablet [address] [facility], [address] [place] [address], [id number], 11/22/2024 13:46:27 aspirin 81 mg chewable tablet [address] [facility], [address] [place] [address], [id number], 11/22/2024 13:46:27 medroxypr ogesteron e 150 mg/mL intramusc ular suspensio n 2024 025 Not available 09/18/2024 10:11:39 lovastati n 10 mg tablet 2024 [address] [facility] [employer] [facility], [address] [place] [address], [id number], 11/22/2024 13:46:27 glipizide 5 mg tablet 2024 [address] [facility] [employer] [facility], [address] [place] [address], [id number], 11/22/2024 13:46:28 metformin 1,000 mg tablet 2024 [address] [facility] [facility] [employer] [facility], [address] [place] [address], [id number], 11/22/2024 13:46:26 OneTouch Ultra Test strips 2024 [address] [facility] [facility] [employer] [facility], [address] [place] [address], [id number], 10/23/2024 10:17:41 Ozempic 1 mg/dose (4 mg/3 mL) subcutane ous pen injector 2024 [address] [facility] [employer] [facility], [address] [place] [address], [id number], 01/04/2025 17:56:09 cetirizin e 10 mg tablet 2024 [address] [facility] [employer] [facility], [address] [place] [address], [id number], 10/22/2024 10:19:12 aspirin 81 mg chewable tablet 2024 [address] [facility] [employer] [facility], [address] [place] [address], [id number], 08/24/2024 09:33:13 lisinopri l 2.5 mg tablet 2024 [address] [facility] [employer] [facility], [address] [place] [address], [id number], 09/18/2024 09:35:28 lovastati n 10 mg tablet 2024 [address] [facility] [employer] [facility], [address] [place] [address], [id number], 08/20/2024 15:19:39 medroxypr ogesteron e 150 mg/mL intramusc ular suspensio n 2024 025 [email or web address] Not available 06/26/2024 15:39:54 glipizide 5 mg tablet 2024 [address] [facility] [employer] [facility], [address] [place] [address], [id number], 06/25/2024 17:36:34 metformin 1,000 mg tablet 2024 [address] [facility] [employer] [facility], [address] [place] [address], [id number], 08/20/2024 15:19:36 OneTouch Ultra Test strips 2024 [address] [facility] [employer] [facility], [address] [place] [address], [id number], 07/21/2024 13:47:18 Ozempic 0.25 mg or 0.5 mg (2 mg/1.5 mL) subcutane ous pen injector 2024 [address] [facility] [employer] [facility], [address] [place] [address], [id number], 11/09/2024 10:05:48 cetirizin e 10 mg tablet 2023 [address] [facility] [employer] [facility], [address] [place] [address], [id number], 06/22/2024 14:46:42 aspirin 81 mg chewable tablet 2023 024 [employer], [address] [place] [address], [id number], 06/22/2024 14:46:43 lisinopri l 2.5 mg tablet 2023 [place] [address] [facility], [address] [place] [address], [id number], 09/18/2024 09:18:42 Victoza 3-Paulino 0.6 mg/0.1 mL (18 mg/3 mL) subcutane ous pen injector 2023 [place] [address] [facility], [address] [place] [address], [id number], 09/18/2024 09:18:49 medroxypr ogesteron e 150 mg/mL intramusc ular suspensio n 2023 [email or web address] Not available 03/23/2024 17:48:57 lovastati n 10 mg tablet 2023 [employer] [employer], [address] [place] [address], [id number], 06/22/2024 14:46:43 glipizide 5 mg tablet 2023 [employer], [address] [place] [address], [id number], 08/20/2024 15:19:35 metformin 1,000 mg tablet 2023 [employer], [address] [place] [address], [id number], 06/22/2024 14:46:44 cetirizin e 10 mg tablet 2023 [employer], [address] [place] [address], [id number], 03/23/2024 15:09:12 aspirin 81 mg chewable tablet [id number] [facility], [address] [place] [address], [id number], 03/23/2024 15:09:13 bisoprolo l fumarate 5 mg tablet 2023 [employer] [employer], [address] [place] [address], [id number], 03/23/2024 11:51:49 lisinopri l 2.5 mg tablet 2023 [place] [address] [employer], [address] [place] [address], [id number], 09/18/2024 09:18:42 Victoza 3-Paulino 0.6 mg/0.1 mL (18 mg/3 mL) subcutane ous pen injector 2023 [place] [address] [employer], [address] [place] [address], [id number], 09/18/2024 09:18:49 lovastati n 10 mg tablet 2023 [employer], [address] [place] [address], [id number], 03/23/2024 15:09:12 medroxypr ogesteron e 150 mg/mL intramusc ular suspensio n 2023 [email or web address] Not available 12/23/2023 11:39:29 metformin 1,000 mg tablet 2023 [facility], [address] [place] [address], [id number], 03/23/2024 15:09:11 OneTouch Ultra Test strips 2023 [facility], [address] [place] [address], [id number], 05/24/2024 10:39:30 Patient TargetsNo targets recorded. Patient Instructions Encounter Date Encounter Id Patient Instructions Last Modified By Organization Details Last Modified Time 12/23/2023 [id number] statins: care instructions [email or web address] Not available 12/23/2023 11:39:29 09/18/2024 [id number] diabetic foot exam* [email or web address] Not available 09/18/2024 09:30:21 Reason for Referral None Reported. Results Created Date Observation Date Name Description Value Unit Range Abnormal Flag Note LastModifiedBy Organization Detail LastModifiedTime 12/23/19 24 12/24/2023 LIPID PANEL , STAND UBALDO cholesterol, total 159 mg/dL <200 normal Not Available [facility] [address] [place], [address], 12/24/2023 06:13:42 12/23/19 24 12/24/2023 LIPID PANEL , STAND UBALDO HDL cholesterol 50 mg/dL > or = 50 normal Not Available [facility] [address] [facility] [place], [address], 12/24/2023 06:13:42 12/23/19 24 12/24/2023 LIPID PANEL , STAND UBALDO triglyceride s 75 mg/dL <150 normal Not Available [facility] [address] [facility], [place], [address], 12/24/2023 06:13:42 12/23/19 24 12/24/2023 LIPID PANEL , STAND UBALDO LDL-choleste rol 93 mg/dL _(cassi c) normal Refer ence range : <100 Neisha able range <100 mg/dL for prima ry preve ntion ; <70 mg/dL for patie nts with CHD or diabe tic patie nts with > or = 2 CHD risk facto rs. LDL-C is now calcu lated using the Jany n-Hop kins anoopu bailey n, which is a valid ated novel olamide ogden r accur acy than the Fried siva equat ion in the estim ation of LDL-C . Jany chowdhury SS et al. PB. 2013; 310(1 9): 2061- 2068 (http ://ed ucati on.Luis michaels goOutMaps. com/f aq/FA Q164) Not Available [facility] [address] [facility] [place], [address], 12/24/2023 06:13:42 12/23/19 24 12/24/2023 LIPID PANEL , STAND UBALDO chol/HDLC ratio 3.2 (calc ) <5.0 normal Not Available [facility] [address] [facility] [place], [address], 12/24/2023 06:13:42 12/23/19 24 12/24/2023 LIPID PANEL , STAND UBALDO non HDL cholesterol 109 mg/dL _(cassi c) <130 normal For patie nts with diabe john plus 1 major ASCVD risk facto r, treat ing to a non-H DL-C goal of <100 mg/dL (LDL- C of <70 mg/dL ) is consi dered a thera pealan c optio n. Not Available [facility] [address] [facility] [place], [address], 12/24/2023 06:13:42 12/23/19 24 12/24/2023 COMPR EHENS JEANIE METAB OLIC PANEL glucose 140 mg/dL 65-139 high Non-f astin g refer ence inter rhonda Not Available [facility] [address] [facility] [place] [place], [address], 12/24/2023 06:13:43 12/23/19 24 12/24/2023 COMPR EHENS JEANIE METAB OLIC PANEL urea nitrogen (BUN) 16 mg/dL 7-25 normal Not Available [facility] [address] [facility] [place], [address], 12/24/2023 06:13:43 12/23/19 24 12/24/2023 COMPR EHENS JEANIE METAB OLIC PANEL creatinine 0.61 mg/dL 0.50-0 .99 normal Not Available [facility] [address] [facility] [place] [place], [address], 12/24/2023 06:13:43 12/23/19 24 12/24/2023 COMPR EHENS JEANIE METAB OLIC PANEL eGFR 113 mL/mi n/1.7 3m2 > or = 60 normal Not Available [facility] [address] [place], [address], 12/24/2023 06:13:43 12/23/19 24 12/24/2023 COMPR EHENS JEANIE METAB OLIC PANEL BUN/creatini ne ratio SEE NOTE: (calc ) 6-22 Not Repor liss: BUN and Creat inine are withi n refer ence range . Not Available [facility] [address] [facility] [place] [place], [address], 12/24/2023 06:13:43 12/23/19 24 12/24/2023 COMPR EHENS JEANIE METAB OLIC PANEL sodium 140 mmol/ L 135-14 6 normal Not Available [facility] [address] [place], [address], 12/24/2023 06:13:43 12/23/19 24 12/24/2023 COMPR EHENS JEANIE METAB OLIC PANEL potassium 4.2 mmol/ L 3.5-5. 3 normal Not Available [facility] [address] [place], [address], 12/24/2023 06:13:43 12/23/19 24 12/24/2023 COMPR EHENS JEANIE METAB OLIC PANEL chloride 107 mmol/ L 98-110 normal Not Available [facility] [address] [place], [address], 12/24/2023 06:13:43 12/23/19 24 12/24/2023 COMPR EHENS JEANIE METAB OLIC PANEL carbon dioxide 24 mmol/ L 20-32 normal Not Available [facility] [address] [place], [address], 12/24/2023 06:13:43 12/23/19 24 12/24/2023 COMPR EHENS JEANIE METAB OLIC PANEL calcium 9.8 mg/dL 8.6-10 .2 normal Not Available [facility] [address] [facility] [place], [address], 12/24/2023 06:13:43 12/23/19 24 12/24/2023 COMPR EHENS JEANIE METAB OLIC PANEL protein, total 7.3 g/dL 6.1-8. 1 normal Not Available [facility] [address] [facility] [place], [address], 12/24/2023 06:13:43 12/23/19 24 12/24/2023 COMPR EHENS JEANIE METAB OLIC PANEL albumin 4.4 g/dL 3.6-5. 1 normal Not Available [facility] [address] [facility] [place], [address], 12/24/2023 06:13:43 12/23/19 24 12/24/2023 COMPR EHENS JEANIE METAB OLIC PANEL globulin 2.9 g/dL_ (calc ) 1.9-3. 7 normal Not Available [facility] [address] [facility] [place], [address], 12/24/2023 06:13:43 12/23/19 24 12/24/2023 COMPR EHENS JEANIE METAB OLIC PANEL albumin/glob ulin ratio 1.5 (calc ) 1.0-2. 5 normal Not Available [facility] [address] [facility] [place], [address], 12/24/2023 06:13:43 12/23/19 24 12/24/2023 COMPR EHENS JEANIE METAB OLIC PANEL bilirubin, total 0.8 mg/dL 0.2-1. 2 normal Not Available [facility] [address] [place], [address], 12/24/2023 06:13:43 12/23/19 24 12/24/2023 COMPR EHENS JEANIE METAB OLIC PANEL alkaline phosphatase 67 U/L 31-125 normal Not Available [facility] [employer] [facility] [address] [place], [address], 12/24/2023 06:13:43 12/23/19 24 12/24/2023 COMPR EHENS JEANIE METAB OLIC PANEL AST 19 U/L 10-30 normal Not Available [facility] [address] [place], [address], 12/24/2023 06:13:43 12/23/19 24 12/24/2023 COMPR EHENS JEANIE METAB OLIC PANEL ALT 21 U/L 6-29 normal Not Available [facility] [address] [place], [address], 12/24/2023 06:13:43 12/23/19 24 12/24/2023 CBC (INCL UDES DIFF/ PLT) white blood cell count 11.3 thous and/u L 3.8-10 .8 high Not Available [facility] [address] [place], [address], 12/24/2023 06:13:44 12/23/19 24 12/24/2023 CBC (INCL UDES DIFF/ PLT) red blood cell count 4.69 macario on/uL 3.80-5 .10 normal Not Available [facility] [address] [place], [address], 12/24/2023 06:13:44 12/23/19 24 12/24/2023 CBC (INCL UDES DIFF/ PLT) hemoglobin 14.0 g/dL 11.7-1 5.5 normal Not Available [facility] [address] [place], [address], 12/24/2023 06:13:44 12/23/19 24 12/24/2023 CBC (INCL UDES DIFF/ PLT) hematocrit 42.5 % 35.0-4 5.0 normal Not Available [facility] [address] [facility] [place], [address], 12/24/2023 06:13:44 12/23/19 24 12/24/2023 CBC (INCL UDES DIFF/ PLT) MCV 90.6 fL 80.0-1 00.0 normal Not Available [facility] [address] [facility] [place], [address], 12/24/2023 06:13:44 12/23/19 24 12/24/2023 CBC (INCL UDES DIFF/ PLT) MCH 29.9 pg 27.0-3 3.0 normal Not Available [facility] [address] [place], [address], 12/24/2023 06:13:44 12/23/19 24 12/24/2023 CBC (INCL UDES DIFF/ PLT) MCHC 32.9 g/dL 32.0-3 6.0 normal Not Available [facility] [address] [facility] [place], [address], 12/24/2023 06:13:44 12/23/19 24 12/24/2023 CBC (INCL UDES DIFF/ PLT) RDW 12.7 % 11.0-1 5.0 normal Not Available [facility] [address] [facility] [place], [address], 12/24/2023 06:13:44 12/23/19 24 12/24/2023 CBC (INCL UDES DIFF/ PLT) platelet count 295 thous and/u L 140-40 0 normal Not Available [facility] [address] [place], [address], 12/24/2023 06:13:44 12/23/19 24 12/24/2023 CBC (INCL UDES DIFF/ PLT) MPV 11.6 fL 7.5-12 .5 normal Not Available [facility] [address], [place], [address], 12/24/2023 06:13:44 12/23/19 24 12/24/2023 CBC (INCL UDES DIFF/ PLT) absolute neutrophils 6622 cells /uL 1500-7 800 normal Not Available [facility] [address], [place], [address], 12/24/2023 06:13:44 12/23/19 24 12/24/2023 CBC (INCL UDES DIFF/ PLT) absolute lymphocytes 3548 cells /uL 850-39 00 normal Not Available [facility] [address], [place], [address], 12/24/2023 06:13:44 12/23/19 24 12/24/2023 CBC (INCL UDES DIFF/ PLT) absolute monocytes 610 cells /uL 200-95 0 normal Not Available [facility] [address], [place], [address], 12/24/2023 06:13:44 12/23/19 24 12/24/2023 CBC (INCL UDES DIFF/ PLT) absolute eosinophils 463 cells /uL 15-500 normal Not Available [facility] [address], [place], [address], 12/24/2023 06:13:44 12/23/19 24 12/24/2023 CBC (INCL UDES DIFF/ PLT) absolute basophils 57 cells /uL 0-200 normal Not Available [facility] [address], [place], [address], 12/24/2023 06:13:44 12/23/19 24 12/24/2023 CBC (INCL UDES DIFF/ PLT) neutrophils 58.6 % normal Not Available [facility] [address] [facility] [place], [address], 12/24/2023 06:13:44 12/23/19 24 12/24/2023 CBC (INCL UDES DIFF/ PLT) lymphocytes 31.4 % normal Not Available [facility] [address] [place], [address], 12/24/2023 06:13:44 12/23/19 24 12/24/2023 CBC (INCL UDES DIFF/ PLT) monocytes 5.4 % normal Not Available [facility] [address] [place], [address], 12/24/2023 06:13:44 12/23/19 24 12/24/2023 CBC (INCL UDES DIFF/ PLT) eosinophils 4.1 % normal Not Available [facility] [address] [place], [address], 12/24/2023 06:13:44 12/23/19 24 12/24/2023 CBC (INCL UDES DIFF/ PLT) basophils 0.5 % normal Not Available [facility] [address] [place], [address], 12/24/2023 06:13:44 12/23/1912/24/2023 TSH W/REF JOSÉ MIGUEL TO FT4 TSH w/reflex to FT4 1.15 mIU/L normal Refer ence Range > or = 20 Years 0.40- 4.50 Pregn awais Range s First trime ster 0.26- 2.66 Secon d trime ster 0.55- 2.73 Third trime ster 0.43- 2.91 Not Available [facility] [address] [place], [address], 12/24/2023 06:13:44 12/23/1912/24/2023 VITAM IN D,25- OH,TO SAVITA,I A vitamin D,25-oh,tota l,ia 42 NG/mL 30-100 normal Vitam in D Statu s 25-OH Vitam in D: Defic iency : <20 ng/mL Insuf ficie ncy: 20 - 29 ng/mL Optim al: > or = 30 ng/mL For 25-OH Vitam in D testi ng on patie nts on D2-larson pplem entat ion and patie nts for whom quant itati on of D2 and D3 fract ions is requi red, the [facility] e[facility](TM ) 25-OH VIT D, (D2,D 3), LC/MS /MS is recom dequan d: order code 52099 (néstor ents >2yrs ). See Note 1 Note 1 For addit ional infor juan chung refer to http: //[email or web address] juan [email or web address].c om/fa q/FAQ 199 (This link is being provi ded for infor saurav gallego/ [employer] [facility] [facility] only. ) Not Available [facility] [address] [place] [address], [place], [address], 12/24/2023 06:13:44 12/23/19 24 12/23/2023 HbA1c (hemo globi n A1c), blood HbA1c 6.[address], [address], 12/23/2023 10:48:13 12/23/19 24 12/23/2023 pregn awais test, urine HCG negati ve Not Available [address], [address], 12/23/2023 11:09:28 03/23/20 24 03/23/2024 HbA1c (hemo globi n A1c), blood HbA1c 6.[address], [address], 03/23/2024 11:45:43 03/23/20 24 03/23/2024 pregn awais test, urine HCG negati ve Not Available [address], [address], 03/23/2024 11:45:55 06/22/19 25 06/22/2024 pregn awais test, urine HCG negati ve Not Available [address], [address], 06/22/2024 09:24:48 06/22/1906/22/2024 HbA1c (hemo globi n A1c), blood HbA1c 5.[address], [address], 06/22/2024 09:24:26 09/19/19 25 09/19/2024 TSH+F REE T4 TSH 1.260 uIU/m L 0.450- 4.500 normal Not Available [facility] [address] [place], [address], 09/20/2024 05:06:41 09/19/19 25 09/19/2024 TSH+F REE T4 T4,free(dire ct) 0.92 NG/dL 0.82-1 .77 normal Not Available [facility] ([facility]) [address] [facility], [place], [address], 09/20/2024 05:06:41 09/19/19 25 09/19/2024 CBC WITH DIFFE RENTI AL/PL ATELE T WBC 12.4 x10e3 /uL 3.4-10 .8 above high normal Not Available [facility] ([facility]) [address] [place], [address], 09/20/2024 05:06:41 09/19/19 25 09/19/2024 CBC WITH DIFFE RENTI AL/PL ATELE T RBC 4.96 x10e6 /uL 3.77-5 .28 normal Not Available [facility] ([facility]) [address] [place], [address], 09/20/2024 05:06:41 09/19/19 25 09/19/2024 CBC WITH DIFFE RENTI AL/PL ATELE T hemoglobin 14.5 g/dL 11.1-1 5.9 normal Not Available [facility] ([facility]) [address] [place], [address], 09/20/2024 05:06:41 09/19/19 25 09/19/2024 CBC WITH DIFFE RENTI AL/PL ATELE T hematocrit 43.7 % 34.0-4 6.6 normal Not Available [facility] ([facility]) [address] [place], [address], 09/20/2024 05:06:41 09/19/19 25 09/19/2024 CBC WITH DIFFE RENTI AL/PL ATELE T MCV 88 fL 79-97 normal Not Available [facility] ([facility]) [address] [place], [address], 09/20/2024 05:06:41 09/19/19 25 09/19/2024 CBC WITH DIFFE RENTI AL/PL ATELE T MCH 29.2 pg 26.6-3 3.0 normal Not Available [facility] ([facility]) [address] [place], [address], 09/20/2024 05:06:41 09/19/19 25 09/19/2024 CBC WITH DIFFE RENTI AL/PL ATELE T MCHC 33.2 g/dL 31.5-3 5.7 normal Not Available [facility]) [address] [place], [address], 09/20/2024 05:06:41 09/19/19 25 09/19/2024 CBC WITH DIFFE RENTI AL/PL ATELE T RDW 13.0 % 11.7-1 5.4 Not Available [facility] ([facility]) [address] [facility], [place], [address], 09/20/2024 05:06:41 09/19/19 25 09/19/2024 CBC WITH DIFFE RENTI AL/PL ATELE T platelets 285 x10e3 /uL 150-45 0 normal Not Available [facility] ([facility]) [address] [facility], [place], [address], 09/20/2024 05:06:41 09/19/19 25 09/19/2024 CBC WITH DIFFE RENTI AL/PL ATELE T neutrophils 57 % not estab. normal Not Available [facility]) [address] [facility], [place], [address], 09/20/2024 05:06:41 09/19/19 25 09/19/2024 CBC WITH DIFFE RENTI AL/PL ATELE T lymphs 30 % not estab. normal Not Available [facility]) [address] [facility], [place], [address], 09/20/2024 05:06:41 09/19/19 25 09/19/2024 CBC WITH DIFFE RENTI AL/PL ATELE T monocytes 6 % not estab. normal Not Available [facility]) [address] [facility], [place], [address], 09/20/2024 05:06:41 09/19/19 25 09/19/2024 CBC WITH DIFFE RENTI AL/PL ATELE T eos 5 % not estab. normal Not Available [facility]) [address] [facility], [place], [address], 09/20/2024 05:06:41 09/19/19 25 09/19/2024 CBC WITH DIFFE RENTI AL/PL ATELE T basos 1 % not estab. normal Not Available [facility]) [address] [place], [address], 09/20/2024 05:06:41 09/19/19 25 09/19/2024 CBC WITH DIFFE RENTI AL/PL ATELE T immature cells [employer]RATOR Not Available [facility]) [address] [facility], [place], [address], 09/20/2024 05:06:41 09/19/19 25 09/19/2024 CBC WITH DIFFE RENTI AL/PL ATELE T neutrophils (absolute) 7.3 x10e3 /uL 1.4-7. 0 above high normal Not Available [facility] ([facility]) [address] [place], [address], 09/20/2024 05:06:41 09/19/19 25 09/19/2024 CBC WITH DIFFE RENTI AL/PL ATELE T lymphs (absolute) 3.7 x10e3 /uL 0.7-3. 1 above high normal Not Available [facility]) [address] [place], [address], 09/20/2024 05:06:41 09/19/19 25 09/19/2024 CBC WITH DIFFE RENTI AL/PL ATELE T monocytes(ab solute) 0.7 x10e3 /uL 0.1-0. 9 normal Not Available [facility]) [address] [place], [address], 09/20/2024 05:06:41 09/19/19 25 09/19/2024 CBC WITH DIFFE RENTI AL/PL ATELE T eos (absolute) 0.6 x10e3 /uL 0.0-0. 4 above high normal Not Available [facility]) [address] [place], [address], 09/20/2024 05:06:41 09/19/19 25 09/19/2024 CBC WITH DIFFE RENTI AL/PL ATELE T baso (absolute) 0.1 x10e3 /uL 0.0-0. 2 normal Not Available [facility]) [address] [facility], [place], [address], 09/20/2024 05:06:41 09/19/19 25 09/19/2024 CBC WITH DIFFE RENTI AL/PL ATELE T immature granulocytes 1 % not estab. Not Available [facility] [address] [facility], [place], [address], 09/20/2024 05:06:41 09/19/19 25 09/19/2024 CBC WITH DIFFE RENTI AL/PL ATELE T immature grans (abs) 0.1 x10e3 /uL 0.0-0. 1 Not Available [facility]) [address] [facility], [place], [address], 09/20/2024 05:06:41 09/19/19 25 09/19/2024 CBC WITH DIFFE RENTI AL/PL ATELE T NRBC [employer] ADMINISTRATOR Not Available [facility]) [address] [facility], [place], [address], 09/20/2024 05:06:41 09/19/19 25 09/19/2024 CBC WITH DIFFE RENTI AL/PL ATELE T hematology comments: [employer] ADMINISTRATOR Not Available [facility]) [address] [place], [address], 09/20/2024 05:06:41 09/19/19 25 09/19/2024 COMP. METAB OLIC PANEL (14) glucose 126 mg/dL 70-99 above high normal Not Available [facility]) [address] [place], [address], 09/20/2024 05:06:42 09/19/19 25 09/19/2024 COMP. METAB OLIC PANEL (14) BUN 10 mg/dL 6-24 normal Not Available [facility] ([facility]) [address] [place], [address], 09/20/2024 05:06:42 09/19/19 25 09/19/2024 COMP. METAB OLIC PANEL (14) creatinine 0.62 mg/dL 0.57-1 .00 normal Not Available [facility]) [address] [place], [address], 09/20/2024 05:06:42 09/19/19 25 09/19/2024 COMP. METAB OLIC PANEL (14) eGFR 112 mL/mi n/1.7 3 >59 normal Not Available [facility]) [address] [place], [address], 09/20/2024 05:06:42 09/19/19 25 09/19/2024 COMP. METAB OLIC PANEL (14) BUN/creatini ne ratio 16 9-23 normal Not Available [facility] [address] [facility] [place], [address], 09/20/2024 05:06:42 09/19/19 25 09/19/2024 COMP. METAB OLIC PANEL (14) sodium 139 mmol/ L 134-14 4 normal Not Available [facility] [address] [facility] [place], [address], 09/20/2024 05:06:42 09/19/19 25 09/19/2024 COMP. METAB OLIC PANEL (14) potassium 4.2 mmol/ L 3.5-5. 2 normal Not Available [facility]) [address] [facility] [place], [address], 09/20/2024 05:06:42 09/19/19 25 09/19/2024 COMP. METAB OLIC PANEL (14) chloride 104 mmol/ L 96-106 normal Not Available [facility] [address] [facility] [place], [address], 09/20/2024 05:06:42 09/19/19 25 09/19/2024 COMP. METAB OLIC PANEL (14) carbon dioxide, total 20 mmol/ L 20-29 normal Not Available [facility] [address] [facility] [place], [address], 09/20/2024 05:06:42 09/19/19 25 09/19/2024 COMP. METAB OLIC PANEL (14) calcium 9.3 mg/dL 8.7-10 .2 normal Not Available [facility]) [address] [facility] [place], [address], 09/20/2024 05:06:42 09/19/19 25 09/19/2024 COMP. METAB OLIC PANEL (14) protein, total 6.9 g/dL 6.0-8. 5 normal Not Available [facility] [address] [facility] [place], [address], 09/20/2024 05:06:42 09/19/19 25 09/19/2024 COMP. METAB OLIC PANEL (14) albumin 4.2 g/dL 3.9-4. 9 normal Not Available [facility] [address] [facility] [place], [address], 09/20/2024 05:06:42 09/19/19 25 09/19/2024 COMP. METAB OLIC PANEL (14) globulin, total 2.7 g/dL 1.5-4. 5 Not Available [facility] [address] [facility] [place], [address], 09/20/2024 05:06:42 09/19/19 25 09/19/2024 COMP. METAB OLIC PANEL (14) bilirubin, total 0.6 mg/dL 0.0-1. 2 normal Not Available [facility] [address] [facility] [place], [address], 09/20/2024 05:06:42 09/19/19 25 09/19/2024 COMP. METAB OLIC PANEL (14) alkaline phosphatase 78 IU/L 44-121 normal Not Available [facility] [address] [place], [address], 09/20/2024 05:06:42 09/19/19 25 09/19/2024 COMP. METAB OLIC PANEL (14) AST (SGOT) 17 IU/L 0-40 normal Not Available [facility]) [address] [place], [address], 09/20/2024 05:06:42 09/19/19 25 09/19/2024 COMP. METAB OLIC PANEL (14) ALT (SGPT) 20 IU/L 0-32 normal Not Available [facility] ([facility]) [address] [place], [address], 09/20/2024 05:06:42 09/19/19 25 09/19/2024 LIPID PANEL cholesterol, total 165 mg/dL 100-19 9 normal Not Available [facility] [address] [place], [address], 09/20/2024 05:06:42 09/19/19 25 09/19/2024 LIPID PANEL triglyceride s 61 mg/dL 0-149 normal Not Available [facility] [address] [place], [address], 09/20/2024 05:06:42 09/19/19 25 09/19/2024 LIPID PANEL HDL cholesterol 43 mg/dL >39 normal Not Available [facility] [address] [place], [address], 09/20/2024 05:06:42 09/19/19 25 09/19/2024 LIPID PANEL VLDL cholesterol cassi 12 mg/dL 5-40 Not Available [facility] [address] [place], [address], 09/20/2024 05:06:42 09/19/19 25 09/19/2024 LIPID PANEL LDL chol calc ([facility]) 110 mg/dL 0-99 above high normal Not Available [facility] [address] [facility], [place], [address], 09/20/2024 05:06:42 09/19/19 25 09/19/2024 LIPID PANEL LDL calc comment: [employer] ADMINISTRATOR Not Available [facility] [address] [place], [address], 09/20/2024 05:06:42 09/19/19 25 09/20/2024 CT, NG, TRICH VAG BY TAY chlamydia by TAY Negati ve negati ve Not Available [facility]) [address] [place], [address], 09/20/2024 05:06:43 09/19/19 25 09/20/2024 CT, NG, TRICH VAG BY TAY gonococcus by TAY Negati ve negati ve Not Available [facility]) [address] [place], [address], 09/20/2024 05:06:43 09/19/19 25 09/20/2024 CT, NG, TRICH VAG BY TAY trich vag by TAY Negati ve negati ve Not Available [facility]) [address] [place], [address], 09/20/2024 05:06:43 09/19/19 25 09/19/2024 VITAM IN D, 25-HY DROXY vitamin D, 25-hydroxy 35.9 NG/mL 30.0-1 00.0 Vitam in D defic iency has been defin ed by the Insti tute of Medic ine and an Endoc rine Socie ty pract ice guide line as a level of serum 25-OH vitam in D less than 20 ng/mL (1,2) . The Endoc rine Socie ty went on to furth er defin e vitam in D insuf ficie ncy as a level betwe en 21 and 29 ng/mL (2). 1. IOM (Inst itute of Medic ine). 2010. Dieta ry refer ence intak es for calci um and D. Erlinda sorensen [place]: [facility] [employer] . 2. Lucho appiah [place], Ashely crabtree [place], [place] off-F errar i FUNEZ, et al. Evalu ation , treat ment, and preve ntion of vitam in D defic iency : an Endoc rine Socie ty clini cassi pract ice guide line. JCEM. 2010; 96(7) :1911 -30. Not Available [facility] ([facility]) [address] [facility], [place], [address], 09/20/2024 05:06:43 09/19/19 25 09/18/2024 pregn awais test, urine HCG negati ve Not Available [address], [address], 09/17/2024 14:21:06 09/19/19 25 09/18/2024 micro album in/cr eatin ine, mass ratio , urine Microalbumin 10 Not Available [address], [address], 09/17/2024 14:20:35 09/19/19 25 09/18/2024 micro album in/cr eatin ine, mass ratio , urine Creatinine 100 Not Available [address], [address], 09/17/2024 14:20:35 09/19/19 25 09/18/2024 micro album in/cr eatin ine, mass ratio , urine Ratio <[address] Available [address], [address], 09/17/2024 14:20:35 09/19/19 25 09/18/2024 HbA1c (hemo globi n A1c), blood HbA1c 6.[address], [address], 09/17/2024 14:20:26 12/18/19 25 12/17/2024 pregn awais test, urine HCG negati ve Not Available [address], [address], 12/17/2024 09:45:48 12/18/19 25 12/17/2024 HbA1c (hemo globi n A1c), blood HbA1c 6.[address], [address], 12/17/2024 09:45:27 02/26/20 24 02/23/2024 cardi ac stres s test No observ ation record ed. [place] [id number] [facility] [address], [place], [address], 03/27/2024 13:41:57 02/27/20 24 02/23/2024 NM, myoca rdial perfu dario scan No observ ation record ed. [address] [facility] [address], [place], [address], 03/27/2024 13:43:10 02/27/20 24 02/23/2024 imagi ng/di agnos tic resul t No observ ation record ed. [address] [facility] [address], [place], [address], 03/27/2024 13:44:05 03/20/20 24 03/20/2024 CT, angio gram, coron lin arter ies, w/wo contr ast No observ ation record ed. [place] [id number], [place], [address], 03/27/2024 13:44:32 03/20/20 24 03/20/2024 CT, angio gram, coron lin arter ies, w/wo contr ast No observ ation record ed. [address], [place], [address], 03/27/2024 13:45:05 05/10/20 24 04/25/2024 MRI, heart funct ion and morph ology , w/wo contr ast No observ ation record ed. [address], [place], [address], 08/21/2024 15:44:31 Result Notes None recorded. Problems Name Problem SNOMED Code Status Onset Date Resolution Date Notes Provider Name and Address Organization Details Recorded Time Mixed hyperlip idemia 003184357 Active 2019 Problem Code: E78.2; Problem Code Type: ICD-10; Not Available [facility] 2 21:28:15 Uncontro lled type 2 diabetes mellitus 175972606 Active 2019 Not Available [facility] 21:28:15 Hyperten sive disorder 97089212 Active 2019 Problem Code: I10; Problem Code Type: ICD-10; Not Available [facility] 2 21:28:15 Allergic rhinitis 32980833 Completed 201902/18/2020 Problem Code: J30.9; Problem Code Type: ICD-10; Not Available [facility] 2 21:28:15 Screenin g mammogra phy Completed 201903/18/2022 Problem Code: Z12.31; Problem Code Type: ICD-10; YULISA ennis [employer] 2 10:07:39 Surveill ance of contrace ption Completed 201903/18/2022 YULISA ennis [employer] 2 10:07:39 Body mass index 40+ - severely obese 309534924 Completed 201908/18/2020 Not Available [employer] 2 21:28:18 Chronic fatigue syndrome 54209966 Active 2019 Problem Code: R53.82; Problem Code Type: ICD-10; Not Available [facility] 2 21:28:18 Breast lump 22924726 Active 2019 Problem Code: N63.0; Problem Code Type: ICD-10; Not Available [facility] 2 21:28:15 Body mass index 40+ - severely obese 309879287 Completed 201908/18/2020 Not Available [facility] 2 21:28:17 Uses depot contrace ption 252476819 Completed 201903/18/2022 YULISA ennis, [employer] 2 10:08:02 General examinat ion of patient Completed 201908/18/2020 Not Available [facility] 2 21:28:16 Body mass index 40+ - severely obese 289338087 Completed 202011/14/2020 Not Available [facility] 2 21:28:17 Acute sinusiti s 37676483 Completed 202002/20/2021 Problem Code: J01; Problem Code Type: ICD-10; Not Available [facility] 2 21:28:15 Influenz a vaccine needed 10915907886 06 Completed 202003/18/2022 Problem Code: Z23; Problem Code Type: ICD-10; YULISA ennis, [employer] 2 10:07:39 General examinat ion of patient Completed 202111/20/2021 Not Available [facility] 2 21:28:16 Body mass index 40+ - severely obese 788816587 Active 2021 Not Available [facility] 2 21:28:17 Viral syndrome 943699651 Active 2023 ANEGL BRAR-[address] [place], [address] , [employer] 4 11:32:31 Type 2 diabetes mellitus without complica tion 653071001 Active 2023 Cesilia ennis, [employer] 4 10:47:41 Cardiomy opathy 47390874 Active 2024 Sary Corona, [employer] [address] [place], [address] , [employer] 5 10:00:00 Type 2 diabetes mellitus 92903973 Active 2024 Cesilia ennis, [employer] 5 09:45:21 Hyperlip idemia 77778424 Active 2024 Cesilia ennis, [employer] 5 09:47:01 Fatigue 11498598 Active 2024 Cesilia ennis, [employer] 5 09:47:01 Hypergly cemia 60984476 Active 2024 Cesilia ennis, [employer] 5 09:47:01 Problem Notes None recorded. Procedures Surgical History Date Name Laterality Status Provider Name and Address Organization Details Recorded Time 2 Date of Last Pap Smear completed [employer] 09/23/2023 16:37:23 1 Most Recent Mammogram completed [employer] 09/23/2023 16:37:23 0 section completed NATIVIDAD C[employer] 08/25/2023 10:51:34 Caesarean Section completed [employer] 09/23/2023 16:37:24 Imaging Results None recorded. Procedure Notes None recorded. Medical Equipment None Reported. Allergies No known drug allergies Medications Name Sig Start Date Stop Date Status Note LastModified by Organization Details LastModified Time Prescriptio n - Renewal 07/05 completed Not Available Not Available Not Available Prescriptio n - Prior Authorizati on Request 07/05 completed Not Available Not Available Not Available metformin 500 mg tablet TAKE 1 TABLET 2 TIMES EACH DAY. 11/18 completed Medic ation ID: ''; Medic ation Name: 'Metf ormin Hcl 500 Mg Tabs' ; Nora ptTyp e: ''; Not Available Not Available Not Available cetirizine 10 mg tablet TAKE 1 TABLET 1 TIME EACH DAY active Not Available Not Available No t Available azithromyci n 250 mg tablet take 2 tablets (500 mg) by oral route once daily for 1 day then 1 tablet (250 mg) by oral route once daily for 4 days 02/20 completed Not Available Not Available Not Available glipizide 10 mg tablet TAKE 1 TABLET 2 TIMES EACH DAY BEFORE MEALS 07/05 completed Not Available Not Available Not Available sulfamethox azole 800 mg-trimetho prim 160 mg tablet TAKE 1 TABLET EVERY 12 HOURS FOR 7 DAYS 07/05 completed Not Available Not Available Not Available lovastatin 10 mg tablet TAKE 1 TABLET 1 TIME EACH DAY active Not Available Not Available No t Available acetaminoph en 500 mg tablet TAKE 1 TABLET EVERY 4 TO 6 HOURS NEEDED 08/24 completed Not Available Not Available Not Available bisoprolol fumarate 10 mg tablet TAKE 1 TABLET 1 TIME EACH DAY active Not Available Not Available No t Available bisoprolol fumarate 5 mg tablet TAKE 1 TABLET 1 TIME EACH DAY 03/23 completed Not Available Not Available Not Available lancets use to test glucose BID 2022 active Not Available Not Available Not Avai lable metformin 1,000 mg tablet TAKE 1 TABLET 2 TIMES EACH DAY WITH MORNING AND EVENING MEALS active Not Available Not Available No t Available olopatadine 0.1 % eye drops PLACE 1 DROP INTO BOTH EYES 2 TIMES EACH DAY NEEDED 08/24 completed Not Available Not Available Not Available ibuprofen 400 mg tablet TAKE 1 TABLET EVERY 6 HOURS NEEDED 08/24 completed Not Available Not Available Not Available aspirin 81 mg chewable tablet CHEW AND SWALLOW 1 TABLET 1 TIME EACH DAY active Not Available Not Available No t Available lisinopril 2.5 mg tablet TAKE 1 TABLET 1 TIME EACH DAY 09/18 completed Not Available Not Available Not Available medroxyprog esterone 150 mg/mL intramuscul ar suspension Inject 1 mL every 3 months by intramusc ular route. 2024 active Not Available Not Available Not Avai lable glipizide 5 mg tablet TAKE 1 TABLET 2 TIMES EACH DAY active Not Available Not Available No t Available vitamin E active Not Available Not Ariane ilable Not Available alpha lipoic acid 400 mg QD active Not Available Not Availabl e Not Available BD Ultra-Fine Short Pen Needle 31 gauge x /16 USE TO INJECT VICTOZA 1 TIME EACH DAY active Not Available Not Available No t Available TRUEplus Lancets 33 gauge USE TO TEST BLOOD SUGAR 2 TIMES EACH DAY active Not Available Not Available No t Available Victoza 3-Paulino 0.6 mg/0.1 mL (18 mg/3 mL) subcutaneou s pen injector INJECT 1.2 MG UNDER THE SKIN 1 TIME EACH DAY 09/18 completed Not Available Not Available Not Available Jardiance 10 mg tablet TAKE 1 TABLET 1 TIME EACH DAY active Not Available Not Available No t Available True Metrix Glucose Test Strip USE TO TEST BLOOD SUGAR 2 TIMES EACH DAY active Not Available Not Available No t Available [employer] Glucose Meter USE TO TEST BLOOD SUGAR DIRECTED active Not Available Not Available No t Available Entresto 24 mg-26 mg tablet TAKE 1 TABLET 2 TIMES EACH DAY active Not Available Not Available No t Available Ozempic 0.25 mg or 0.5 mg (2 mg/1.5 mL) subcutaneou s pen injector inject 0.25mg SQ q week x4 weeks, then 0.5mg SQ q week 09/18 completed Not Available Not Available Not Available Ozempic 1 mg/dose (4 mg/3 mL) subcutaneou s pen injector INJECT 1ML UNDER THE SKIN 1 TIME EACH WEEK active Not Available Not Available No t Available Ozempic 0.25 mg or 0.5 mg (2 mg/3 mL) subcutaneou s pen injector INJECT 0.25 MG 1 TIME EACH WEEK FOR 4 WEEKS. THEN, INJECT 0.5 MG 1 TIME EACH WEEK. 12/17 completed Not Available Not Available Not Available Vitals Date Recorded Body height Body mass index (BMI) Body weight Heart rate Oxygen saturation Oxygen saturation in Arterial blood by Pulse oximetry Systolic And Diastolic Provider Name and Address Organization Details Last Updated DateTime 5 152.4 cm 45.7 kg/m2 927402. 61 g 91 /min 96 % 96 % 107/74 mm[Hg] [facility] 5 09:24:14 Date Recorded Body height Body mass index (BMI) Body weight Heart rate Oxygen saturation Oxygen saturation in Arterial blood by Pulse oximetry Systolic And Diastolic Provider Name and Address Organization Details Last Updated DateTime 5 152.4 cm 45.8 kg/m2 254152. 71 g 97 /min 96 % 96 % 109/76 mm[Hg] Cesilia [employer] 5 09:18:35 Date Recorded Body height Body mass index (BMI) Body weight Heart rate Oxygen saturation Oxygen saturation in Arterial blood by Pulse oximetry Systolic And Diastolic Provider Name and Address Organization Details Last Updated DateTime 5 152.4 cm 43.6 kg/m2 378879. 5 g 110 /min 95 % 95 % 115/78 mm[Hg] Cesilia [employer] 5 13:10:25 Date Recorded Body height Body mass index (BMI) Body weight Heart rate Oxygen saturation Oxygen saturation in Arterial blood by Pulse oximetry Systolic And Diastolic Provider Name and Address Organization Details Last Updated DateTime 4 152.4 cm 43 kg/m2 90967.4 2 g 95 /min 96 % 96 % 120/81 mm[Hg] [employer] 4 11:09:11 Date Recorded Body height Body mass index (BMI) Body weight Heart rate Oxygen saturation Oxygen saturation in Arterial blood by Pulse oximetry Systolic And Diastolic Provider Name and Address Organization Details Last Updated DateTime 4 152.4 cm 44.5 kg/m2 704925. 06 g 98 /min 98 % 98 % 102/62 mm[Hg] [employer] 4 11:46:36 Social History Question Answer Notes LastModified by Organizat ion Details LastModified Time Tobacco Smoking Status Never Smoker YULISA ennis, [employer] 03/18/2022 10:09:15 Do You Have An Advance Directive? No [email or web address] Information n ot available 03/18/2022 Is Your Home Air Conditioned? No Information not available 09/23/2023 Do You Wear A Helmet When Biking? No Information not available 09/23/2023 Are You Blind Or Do You Have Difficulty Seeing? No Information n ot available 03/18/2022 What Is Your Level Of Caffeine Consumption? Moderate Information not available 10/29/2022 Are You A Caregiver? No Information not available 10/29/2022 In The 14 Days Before Symptom Onset, Have You Had Close Contact With A Laboratory-confirm ed COVID-19 While That Case Was Ill? No [email or web address] Information n ot available 07/05/2023 In The 14 Days Before Symptom Onset, Have You Had Close Contact With A Person Who Is Under Investigation For COVID-19 While That Person Was Ill? No [email or web address] Information not available 07/05/2023 Have You Been To An Area Known To Be High Risk For COVID-19? No [email or web address] Information not available 07/05/2023 Are You Deaf Or Do You Have Serious Difficulty Hearing? No Information not available 03/18/2022 How Many Days Of Moderate To Strenuous Exercise, Like A Brisk Walk, Did You Do In The Last 7 Days? 7 Information not available 09/23/2023 Have There Been Any Changes To Your Family Or Social Situation? No Information no t available 10/29/2022 Are There Any Guns Present In Your Home? No Information not available 09/23/2023 Which Of Your Hands Is Dominant? Right Information n ot available 09/23/2023 What Is Your Home Situation? Other Information not available 09/23/2023 Do You Have A Medical Power Of Electronics Technology Department Chair? No [email or web address] Information not available 03/18/2022 What Was The Date Of Your Most Recent Tobacco Screening? 12/17/2024 Information not available 12/17/2024 Do You Have Any Pets? Yes Information not available 09/23/2023 Do You Use Protection During Sex? No Information not available 09/23/2023 What Is Your Relationship Status? Information not available 10/29/2022 Have You Repeated Any Grades? Yes Information not available 09/23/2023 Do You Use Your Seat Belt Or Car Seat Routinely? Yes Information not available 10/29/2022 Are You Sexually Active? Yes Information not available 10/29/2022 Do You Have Any Siblings? 3 Sisters Information not available 09/23/2023 Do You Have Smoke And Carbon Monoxide Detectors In Your Home? No Information not available 09/23/2023 Are You Passively Exposed To Smoke? Yes Information no t available 09/23/2023 Are There Any Smokers In Your House? Yes Information not available 09/23/2023 Do You Use Sunscreen Routinely? Yes Information not available 10/29/2022 Have You Recently Traveled Abroad? No Information not available 10/29/2022 Do You Have Difficulty Walking Or Climbing Stairs? No [email or web address] Information not available 03/18/2022 Are You Currently In School? No [email or web address] Information not available 08/25/2023 Sex: Female Functional Status Question Answer Note LastModified by Organizat ion Details LastModified Time Do you use any illicit or recreational drugs? No Information not available 10/29/2022 What is your level of alcohol consumption? None Information not available 10/29/2022 Are you currently employed? No Information not available 10/29/2022 Do you have transportation difficulties? No [email or web address] Information not available 03/18/2022 Are you able to walk? YESWOREST [email or web address] Information not available 03/18/2022 Do you have difficulty doing errands alone? No [email or web address] Information not available 03/18/2022 Are you able to care for yourself? Yes [email or web address] Information n ot available 03/18/2022 Do you have difficulty dressing or bathing? No [email or web address] Information not available 03/18/2022 What is your exercise level? Occasional Information not available 09/23/2023 Mental Status Question Answer Note LastModified by Organizat ion Details LastModified Time Do you feel stressed (tense, restless, nervous, or anxious, or unable to sleep at night)? [id number] Information not available 09/23/2023 Do you have difficulty concentrating, remembering or making decisions? No [email or web address] Information no t available 03/18/2022 Are you or have you been involved with bullying? No Information not available 09/23/2023 Family History Relationship Description Onset Age of this Age Resolved Age Notes LastModified by Organization Details LastModified Time Father Family history of Hypertension Not available 10/2023 16:37:22 Father Family history of hyperlipidem ia [email or web address] Not available 2023 16:37:22 Father Hypercholest erolemia [email or web address] Not available 2023 16:37:22 Father Hypertensive disorder Not available 2023 16:37:22 Father Heart disease Not available 2023 16:37:22 Father Diabetes mellitus Not available 2023 16:37:22 Mother Family history of Hypothyroidi sm Not available 2023 16:37:22 Mother Family history of diabetes mellitus type 2 Not available 2023 16:37:22 Mother Diabetes mellitus Not available 2023 16:37:22 Medical History Condition Response Diabetes Y Hospitalizations N Emergency room visit since last appointm ent. N Gynecological History Statement/Question Response Abnormal Pap Y Flow Heavy Date of LMP 09/20/2022 STIs/STDs N HPV Vaccine Y Duration of Flow (days) 7 Most Recent Mammogram 10/20/2020 Age at Menarche 8 Current Control Method None Age at First Child 19 Frequency of Cycle (Q days) 20 Sexually Active? Y Menses Monthly Y Date of Last Pap Smear 11/06/2021 Sexual Problems? N LMP Approximate Obstetrics History GPAL:G 2 P 2 0 0 2 Type Value Full Term 2 Living 2 Total 2 Immunizations Vaccine Type Date Status Note Provider Nam e and Address Organization Details Recorded Time Influenza, split virus, quadrivalent, PF 3 completed Sary Jeter APRN [address] [place], [address], [employer] 04/14/2023 09:35:04 Influenza, split virus, trivalent, PF 4 completed Sary Jeter APRN [address] [place], [address], [employer] 03/23/2024 12:46:43 Influenza, split virus, quadrivalent, PF 1 completed Not Available [facility] 02/23/2022 23:42:09 COVID-19, mRNA, LNP-S, PF, 100 mcg/0.5mL dose or 50 mcg/0.25mL dose 1 completed NATIVIDAD COREA null, [employer] 08/25/2023 10:42:44 Influenza, split virus, quadrivalent, preservative 5 completed [facility] null, [employer] 08/25/2023 10:42:44 COVID-19, mRNA, LNP-S, PF, 100 mcg/0.5mL dose or 50 mcg/0.25mL dose 1 completed [facility] null, [employer] 08/25/2023 10:42:44 COVID-19, mRNA, LNP-S, PF, 100 mcg/0.5mL dose or 50 mcg/0.25mL dose 1 completed [facility] null, [employer] 08/25/2023 10:42:44 COVID-19, mRNA, LNP-S, PF, 100 mcg/0.5mL dose or 50 mcg/0.25mL dose 1 completed [facility] null, [employer] 08/25/2023 10:42:44 Tdap 3 completed [facility] null, [employer] 08/25/2023 10:42:44 Influenza, split virus, quadrivalent, PF 9 completed [facility]/25/[facility]23 10:42:44 Past Encounters Encounter ID Performer Location Encounter Start Date Encounter Closed Date Diagnosis/Indication Diagnosis SNOMED-CT Code Diagnosis ICD10 Code Diagnosis Note [id number] Sary Jeter [address] [address] 03/18/2022 10:01:48 03/18/2022 10:32:20 Uncontrolled type 2 diabetes mellitus 059027932 E11.65 Essential hypertension 78492379 I10 Hyperlipidemia 33584221 E78.5 Family his tory of Hypothyroidism 770717960 Z83.49 Hypertensive disorder 38 125655 I10 Mixed hyperlipidemia 267 765620 E78.2 Allergic rhinitis 740800 04 J30.9 [id number] Sary Jeter [address] [address] 06/22/2022 09:01:15 06/22/2022 09:25:14 Type 2 diabetes mellitus without complication 694523200 E11.9 Liver enzy mes level above reference range 919936284 R74.01 Menorrhagia 322879697 N9 2.0 Hypertensive disorder 38 315628 I10 Allergic rhinitis 096587 04 J30.9 Uncontroll ed type 2 diabetes mellitus 383200816 E11.65 Hyperlipidemia 44923978 E78.5 Body mass index 30+ - obesity 085373222 Z68.[id number] CNM [facility] [address],[facility] [place] [address] 08/13/2022 09:15:46 08/13/2022 11:35:59 Menorrhagia 841450943 N92.0 Contracept ion care management 406254481 Z30.9 [id number] Sary Jeter [address] [address] 09/23/2022 10:14:04 09/23/2022 10:41:22 Uncontrolled type 2 diabetes mellitus 150634652 E11.65 Hypertensive disorder 38 868781 I10 Allergic rhinitis 951150 04 J30.9 Hyperlipidemia 86501562 E78.5 Body mass index 40+ - severely obese 682144691 Z68.42 [id number] [place] [address] 10/29/2022 10:42:55 10/29/2022 11:57:11 Contraception care management 519796582 Z30.9 Body mass index 40+ - severely obese 980806637 Z68.42 [id number] Sary Jeter [place] [address] 01/14/2023 07:54:19 01/14/2023 08:50:38 Diabetes mellitus 99756645 E11.9 Surveillan ce of contraception 696173058 Z30.40 Hypertensive disorder 38 158878 I10 Mixed hyperlipidemia 267 649933 E78.2 Vitamin D deficiency 347 16116 E55.9 Allergic rhinitis 895190 04 J30.9 Uncontroll ed type 2 diabetes mellitus 150217738 E11.65 Hyperlipidemia 42798885 E78.5 Body mass index 40+ - severely obese 871287255 Z68.42 [id number] Sary Jeter [place] [address] 04/14/2023 08:17:28 04/14/2023 09:04:57 Type 2 diabetes mellitus without complication 640760666 E11.9 Uses depot contraception 249983883 Z30.013 Administra tion of influenza vaccine 55843199 Z23 Dysuria 84479860 R30.0 Acute urin lin tract infection 536482682 N39.0 Diabetes mellitus 867223 09 E11.9 Hypertensive disorder 38 617718 I10 Allergic rhinitis 266524 04 J30.9 Uncontroll ed type 2 diabetes mellitus 730028022 E11.65 Hyperlipidemia 72956364 E78.5 Body mass index 40+ - severely obese 012348304 Z68.42 [id number] Sary Jeter [place] [address] 0 07/05/2023 08:48:08 07/05/2023 12:01:22 Diabetes mellitus 18658255 E11.9 Contracept ion care management 163802547 Z30.9 Uncontroll ed type 2 diabetes mellitus 634153198 E11.65 Hypertensive disorder 38 722559 I10 Allergic rhinitis 057105 04 J30.9 Hyperlipidemia 31367736 E78.5 Body mass index 40+ - severely obese 901098173 Z68.42 [id number] ANGELY EASTMAN, [place] [id number] 08/25/2023 10:39:25 08/25/2023 11:37:53 Viral screening 764791704 Z11.59 Viral syndrome 934057133 B34.9 [id number] [place] [address] 09/23/2023 16:33:14 09/26/2023 09:17:38 Type 2 diabetes mellitus without complication 430272032 E11.9 [facility] 048540733 Z30.9 Hypertensive disorder 38 514370 I10 Allergic rhinitis 317989 04 J30.9 Uncontroll ed type 2 diabetes mellitus 900230660 E11.65 Hyperlipidemia 93669518 E78.5 Diabetes mellitus 114132 09 E11.9 Body mass index 40+ - severely obese 915100856 Z68.42 [id number] [place] [address] 12/23/2023 10:42:32 12/23/2023 11:27:16 Mixed hyperlipidemia 040075764 E78.2 Type 2 josefina betes mellitus without complication 149192740 E11.9 [facility] 063174475 Z30.9 Fatigue 13689562 R53.83 Vitamin D deficiency 347 16662 E55.9 Hypertensive disorder 38 562941 I10 Allergic rhinitis 075019 04 J30.9 Hyperlipidemia 16108836 E78.5 Uncontroll ed type 2 diabetes mellitus 348969317 E11.65 Diabetes mellitus 265814 09 E11.9 Body mass index 40+ - severely obese 341281638 Z68.42 [id number] Sary Jeter [address] [place] [address] 03/23/2024 11:29:50 03/23/2024 12:06:29 Type 2 diabetes mellitus without complication 455888734 E11.9 [facility] 779557943 Z30.9 Administra tion of influenza vaccine 52265002 Z23 Allergic rhinitis 846963 04 J30.9 Uncontroll ed type 2 diabetes mellitus 943132193 E11.65 Hypertensive disorder 38 370790 I10 Hyperlipidemia 75034589 E78.5 Diabetes mellitus 216108 09 E11.9 Body mass index 40+ - severely obese 587203771 Z68.42 [id number] [place] [address] 06/22/2024 08:53:18 06/22/2024 10:21:57 Contraception care management 299256226 Z30.9 Type 2 josefina betes mellitus without complication 456121675 E11.9 Screening for malignant neoplasm of breast 707111808 Z12.39 Hypertensive disorder 38 860116 I10 Diabetes mellitus 832748 09 E11.9 Allergic rhinitis 335965 04 J30.9 Uncontroll ed type 2 diabetes mellitus 347510874 E11.65 Hyperlipidemia 55224649 E78.5 Body mass index 40+ - severely obese 965553592 Z68.42 [id number] [place] [address] 09/18/2024 08:50:55 09/18/2024 09:35:22 Type 2 diabetes mellitus without complication 939127524 E11.9 [facility] 121758535 Z30.9 Fatigue 44456795 R53.83 Hyperlipidemia 50428178 E78.5 Vitamin D deficiency 347 24621 E55.9 Hypertensive disorder 38 362894 I10 Diabetes mellitus 574013 09 E11.9 Allergic rhinitis 946906 04 J30.9 Uncontroll ed type 2 diabetes mellitus 630392986 E11.65 Body mass index 40+ - severely obese 370996322 Z68.42 [id number] [place] [address] 12/17/2024 12:55:41 12/17/2024 13:28:38 Type 2 diabetes mellitus 39954596 E11.9 Uses contraception 19026 004 Z30.42 Hyperlipidemia 17983506 E78.5 Fatigue 53020375 R53.83 HIV screening 927353696 Z11.4 Viral scre ening status 584283945 Z11.59 Hypertensive disorder 38 677917 I10 Allergic rhinitis 592959 04 J30.9 Uncontroll ed type 2 diabetes mellitus 548379882 E11.65 Body mass index 40+ - severely obese 366203851 Z68.41 Health Concerns Section Related Observation LastModified by Organization Detai ls LastModified Time None Recorded Concern Status LastModified by Organization Details LastModified Time None Recorded Advance Directives Directive N: Payers Insurance Date Sequence Insurance Name Policy Number Policy Wheatley Covered Member ID Wheatley Member ID Guarantor Name 12/14/2024 [place] [id number]ICAID[place] Angelika Astorga [id number] Angelika Astorga 03/17/2022 1 *SELF PAY* Antwon Astorga 12/19/2024 1 [facility] [facility] (MEDICAID HMO) Angelika Astorga [id number] Angelika Astorga Notes Date Note Type Note Provider Name and Address Organization Details Recorded Time 12/23/2023 text/html pt here today fo r medicaton refills. pt states shes doing well on current medication regime. A1C 6.2, increased from last visit of 5.9. ordered routine labs today. pt states that she had to reschedule the appt with dr david and then now he is on leave. she went and got the LFTs drawn and they were better. pt states that she has eczema on her face again and she started putting triamcinolone cream on her face last night. on exam, pt has around a quater sized area to left facial cheek that is red and dry. advised pt to continue with the cream for around a week and if not better to let me know and i will referr to derm. pt voiced understanding. Sary Jeter APRN [address] [place], [address], [facility] [employer] 12/23/2023 11:36:20 03/23/2024 text/html pt here today fo r medication refills and depo bc. pt states shes doing well on current medication regime and has no new complaints today. pt states that she has been going to the cardio for the on/off cp. states that she has palpitations and that her heart races and they are concerned because her HR got up to 112 when she walked into the office. states that she may have a blockage due to the high HR . pt states that she goes for a ct scan later this month. Sary Jeter APRN [address] [place], [address], [employer] 03/23/2024 12:48:00 06/22/2024 text/html pt here today fo r medication refills. pt states shes doing well on current medication regime. A1C 5.9, 6.2 at last visit. pt states that she has had a couple of low glucose. however pt cardio wanted her to start a weight loss med for diabetes due to her recent cardiac issues and he thinks that will help. i will see if insurance will cover. i will order ozempic and d/c victoza. if glucose is running low then i will d/c glipizide. Sary Jeter APRN [address] [place], [address], [employer] 06/22/2024 17:40:52 09/18/2024 text/html 44 year old fema le for chronic disease f/u, Depo inj and STI/UPT. Denies acute concerns at this time. States she has been taking all medication as prescribed without AE. A1C today 6.3 from 5.9 at last visit. She states she has had to eat more sugar due to low BG randomly and craving more sweet since increasing ozempic to 0.5. States fasting BG 120s and random PP range from 50-100. We discussed in detail importance of eating 3 meals and healthy snack options. Pt voices understanding. DM foot exam and UA microalbumin performed. Will increase ozempic to 1mg, order labs and refill medication.She is also due for depo today. Denies concerns with BTB. -UPT and STI testing sent. Depo given Sary Jeter APRN [address] [place], [address], [employer] 09/18/2024 09:58:04 12/17/2024 text/html pt here today fo r medication refills. pt states shes doing well on current medication regime and has no new complaints today. A1C 6.0, 6.3 at last visit. pt has lost 11 lbs since last visit. pt is prescribed ozempic. Sary Jeter APRN [address] [place], [address], [employer] 12/17/2024 16:32:36 OBGyn Episode No OBEpisode recorded.
--- OUTSIDE RECORDS SUMMARY | 2025-01-09 13:43 | XMS_ITS | Continuity of Care Document ---
Author Organization [facility], [facility] Address [address] [place] [id number] Care Team Providers Care Moose Hunter Name Role Phone CARLOS MANUEL ELLISON Emissions Repair Technician [phone] Assessment Encounter Date Assessment Date Assessment LastModified by Organization Details LastModified Time 12/17/2024 12/17/2024 Patient presented for medication refill. Patient tolerating medication well at current dose without adverse effects. Refilled as below. Discussed plan with patient, who expressed understanding . Follow up as noted below. [email or web address] Not available 12/17/2024 16:31:29 Plan of Treatment Reminders Order Date Submit Date Provider Last Modified By Organization Details Last Modified Time Details Appointments FOLLOW UP 15 2024 10:45A M Thelma Jeter APRN Not available Not available Not available Lab test, urine 2024 025 [email or web address] [facility], [address] [place] [address], [phone], 12/17/2024 17:34:26 HbA1c (hemoglob in A1c), blood 2024 025 [email or web address] [facility], [address] [place] [address], [phone], 12/17/2024 17:34:26 lipid panel, serum 2024 025 [email or web address] [facility], [address] [place] [address], [place], [id number], 01/09/2025 09:16:39 CBC w/ auto diff 2024 025 [email or web address]), [facility] [place], [id number], 01/09/2025 09:16:39 CMP, serum or plasma 2024 025 [email or web address] ([place]), [address] [place] [address], [id number], 01/09/2025 09:16:39 TSH + free T4, serum 2024 025 [email or web address]), [address] [place] [address], [id number], 01/09/2025 09:16:39 cobalamin and folate panel, serum 2024 025 [email or web address] [facility] ([place]), [address] [place] [address], [id number], 01/09/2025 09:16:40 vitamin D, 25-hydrox y, total, serum 2024 [address]), [address] [place] [address], [id number], 01/09/2025 09:16:40 Hepatitis C IgG Ab, qual, serum 2024 025 [email or web address] ([place]), [address] [place] [address], [id number], 01/09/2025 09:16:40 HIV 1 + 2, meaningfu l use set 2024 025 [address] ([place]), [address] [place] [address], [id number], 01/09/2025 09:16:40 Referral None recorded. Procedures None recorded. Surgeries None recorded. Imaging None recorded. Medication Orders cetirizin e 10 mg tablet 2024 025 [facility], [address] [place] [address], [id number], 12/19/2024 12:01:33 medroxypr ogesteron e 150 mg/mL intramusc ular suspensio n 2024 025 [email or web address] Not available 12/17/2024 17:34:26 aspirin 81 mg chewable tablet 2024 025 [facility], [address] [place] [address], [id number], 12/19/2024 12:01:32 lovastati n 10 mg tablet 2024 025 [facility] [employer], [address] [place] [address], [id number], 12/19/2024 12:01:32 glipizide 5 mg tablet 2024 025 [facility], [address] [place] [address], [id number], 12/19/2024 12:01:32 metformin 1,000 mg tablet 2024 025 [facility], [address] [place] [address], [id number], 12/19/2024 12:01:32 OneTouch Ultra Test strips 2024 025 [facility], [address] [place] [address], [id number], 12/18/2024 12:44:28 Ozempic 1 mg/dose (4 mg/3 mL) subcutane ous pen injector 2024 025 [employer], [address] [place] [address], [id number], 12/18/2024 12:49:30 Patient TargetsNo targets recorded. Patient InstructionsNo instructions recorded. Reason for Referral None Reported. Results Created Date Observation Date Name Description Value Unit Range Abnormal Flag Note LastModifiedBy Organization Detail LastModifiedTime 12/18/19 25 12/17/2024 pregn awais test, urine HCG negati ve Not Available [address], [address], 12/17/2024 09:45:48 12/18/19 25 12/17/2024 HbA1c (hemo globi n A1c), blood HbA1c 6.0 Not Available [address], [address], 12/17/2024 09:45:27 Result Notes None recorded. Problems Name Problem SNOMED Code Status Onset Date Resolution Date Notes Provider Name and Address Organization Details Recorded Time Mixed hyperlip idemia 248047401 Active 2019 Problem Code: E78.2; Problem Code Type: ICD-10; Not Available [facility] 2 21:28:15 Uncontro lled type 2 diabetes mellitus 169049865 Active 2019 Not Available [facility] 2 21:28:15 Hyperten sive disorder 96210948 Active 2019 Problem Code: I10; Problem Code Type: ICD-10; Not Available [facility] 2 21:28:15 Allergic rhinitis 05459456 Completed 201902/18/2020 Problem Code: J30.9; Problem Code Type: ICD-10; Not Available [facility] 2 21:28:15 Screenin g mammogra phy Completed 201903/18/2022 Problem Code: Z12.31; Problem Code Type: ICD-10; YULISA enins [employer] 2 10:07:39 Surveill ance of contrace ption Completed 201903/18/2022 YULISA ennis [employer] 2 10:07:39 Body mass index 40+ - severely obese 526563698 Completed 201908/18/2020 Not Available [facility] 2 21:28:18 Chronic fatigue syndrome 85096656 Active 2019 Problem Code: R53.82; Problem Code Type: ICD-10; Not Available [facility] 2 21:28:18 Breast lump 41448003 Active 2019 Problem Code: N63.0; Problem Code Type: ICD-10; Not Available [facility] 2 21:28:15 Body mass index 40+ - severely obese 273349160 Completed 201908/18/2020 Not Available [facility] 2 21:28:17 Uses depot contrace ption 935337664 Completed 201903/18/2022 YULISA ennis, [employer] 2 10:08:02 General examinat ion of patient Completed 201908/18/2020 Not Available [facility] 2 21:28:16 Body mass index 40+ - severely obese 765200722 Completed 202011/14/2020 Not Available [facility] 2 21:28:17 Acute sinusiti s 78642164 Completed 202002/20/2021 Problem Code: J01; Problem Code Type: ICD-10; Not Available [facility] 2 21:28:15 Influenz a vaccine needed 02271431231 06 Completed 202003/18/2022 Problem Code: Z23; Problem Code Type: ICD-10; YULISA ennis [employer] 2 10:07:39 General examinat ion of patient Completed 202111/20/2021 Not Available [facility] 2 21:28:16 Body mass index 40+ - severely obese 166762798 Active 2021 Not Available [facility] 2 21:28:17 Viral syndrome 047049913 Active 2023 ANGEL BRAR-[address], [address] , [employer] 4 11:32:31 Type 2 diabetes mellitus without complica tion 368620375 Active 2023 Cesilia Carney null, [employer] 4 10:47:41 Cardiomy opathy 56094796 Active 2024 Sary Corona, [employer] [address] [place], [address] , [employer] 5 10:00:00 Type 2 diabetes mellitus 67482613 Active 2024 Cesilia Carney null, [employer] 5 09:45:21 Hyperlip idemia 50799006 Active 2024 Cesilia Carney null, [employer] 5 09:47:01 Fatigue 54683931 Active 2024 Cesilia Carney null, [employer] 5 09:47:01 Hypergly cemia 00689850 Active 2024 Cesilia Carney null, [employer] 5 09:47:01 Problem Notes None recorded. Procedures Surgical History Date Name Laterality Status Provider Name and Address Organization Details Recorded Time 2 Date of Last Pap Smear completed [facility] 09/23/2023 16:37:23 1 Most Recent Mammogram completed [facility] 09/23/2023 16:37:23 0 section completed NATIVIDAD COREA [employer] 08/25/2023 10:51:34 Caesarean Section completed [facility] 09/23/2023 16:37:24 Imaging Results None recorded. Procedure [...] Ultra-Fine Short Pen Needle 31 gauge x 5/16 USE TO INJECT VICTOZA 1 TIME EACH [...] and Address Organization Details Last Updated DateTime 152.4 cm 43.6 kg/m2 027213. 5 g 110 /min 95 % 95 % 115/78 mm[Hg] Cesilia Carney [employer] 13:10:25 Social History Question Answer Notes LastModified by Organizat ion Details LastModified Time Tobacco Smoking Status Never Smoker YULISA ROCHA raymon [employer] 03/18/2022 10:09:15 Do You Have An Advance Directive? No Information n ot available 03/18/2022 Is Your Home Air Conditioned? No Information not available 09/23/2023 Do You Wear A Helmet When Biking? No Information not available 09/23/2023 Are You Blind Or Do You Have Difficulty Seeing? No [email or web address] Information n ot available 03/18/2022 What Is [...] Do You Have Serious Difficulty Hearing? 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 No [email or web address] Information not available 03/18/2022 Are You Currently In School? No Information not available 08/25/2023 Sex: Female Functional Status Question Answer Note LastModified by Organizat ion Details LastModified Time Do you use any illicit or recreational drugs? No Information not available 10/29/2022 What is your level of alcohol consumption? None Information not available 10/29/2022 Are you currently employed? No Information not available 10/29/2022 Do you have transportation difficulties? No [email or web address] Information not available 03/18/2022 Are you able to walk? YESWOREST [email or web address] Information not available 03/18/2022 Do you have difficulty doing errands alone? No [email or web address] Information not available 03/18/2022 Are you able to care for yourself? Yes [email or web address] Information n ot available 03/18/2022 Do you have difficulty dressing or bathing? No Information not available 03/18/2022 What is your exercise level? Occasional Information not available 09/23/2023 Mental Status Question Answer Note LastModified by Organizat ion Details LastModified Time Do you feel stressed (tense, restless, nervous, or anxious, or unable to sleep at night)? [id number] Information not available 09/23/2023 Do you have difficulty concentrating, remembering or making decisions? No [email or web address] Information no t available 03/18/2022 Are you or have you been involved with bullying? No Information not available 09/23/2023 Family History Relationship Description Onset Age of this Age Resolved Age Notes LastModified by Organization Details LastModified Time Father Family history of Hypertension [email or web address] Not available 10/2023 16:37:22 Father Family history of hyperlipidem ia [email or web address] Not available 2023 16:37:22 Father Hypercholest erolemia [email or web address] Not available 2023 16:37:22 Father Hypertensive disorder Not available 2023 16:37:22 Father Heart disease Not available 2023 16:37:22 Father Diabetes mellitus [email or web address] Not available 2023 16:37:22 Mother Family history of Hypothyroidi sm [email or web address] Not available 2023 16:37:22 Mother Family history of diabetes mellitus type 2 Not available 2023 16:37:22 Mother Diabetes mellitus [email or web address] Not available 2023 16:37:22 Medical History Condition Response Emergency room visit since last appointm ent. N Hospitalizations N Diabetes Y Gynecological History Statement/Question Response Abnormal Pap Y [...] PF 3 completed Sary Jeter APRN [address] [place], [address], [employer] 04/14/2023 09:35:04 Influenza, split virus, trivalent, PF 4 completed Sary Jeter APRN [address] [place], [address], [employer] 03/23/2024 12:46:43 Influenza, split virus, quadrivalent, PF 1 completed Not Available [facility] 02/23/2022 23:42:09 COVID-19, mRNA, LNP-S, PF, 100 mcg/0.5mL dose or 50 mcg/0.25mL dose 1 completed NATIVIDAD COREA [employer], [employer] 08/25/2023 10:42:44 Influenza, split virus, quadrivalent, preservative 5 completed NATIVIDAD COREA [employer], [employer] 08/25/2023 10:42:44 COVID-19, mRNA, LNP-S, PF, 100 mcg/0.5mL dose or 50 mcg/0.25mL dose 1 completed NATIVIDAD COREA [employer], [employer] 08/25/2023 10:42:44 COVID-19, mRNA, LNP-S, PF, 100 mcg/0.5mL dose or 50 mcg/0.25mL dose 1 completed NATIVIDAD COREA null, [employer] 08/25/2023 10:42:44 COVID-19, mRNA, LNP-S, PF, 100 mcg/0.5mL dose or 50 mcg/0.25mL dose 1 completed NATIVIDADBETO ennis, [employer] 08/25/2023 10:42:44 Tdap 3 completed NATIVIDAD ennis, [employer] 08/25/2023 10:42:44 Influenza, split virus, quadrivalent, PF 9 completed NATIVIDAD ennis, [employer] 08/25/2023 10:42:44 Past Encounters Encounter ID Performer Location Encounter Start Date Encounter Closed Date Diagnosis/Indication Diagnosis SNOMED-CT Code Diagnosis ICD10 Code Diagnosis Note [id number] Sary Jeter APRN [address] [address] 12/17/2024 12:55:41 12/17/2024 13:28:38 Type 2 diabetes mellitus 04577332 E11.9 Uses contraception 07564 004 Z30.42 Hyperlipidemia 36323475 E78.5 Fatigue 02170619 R53.83 HIV screening 218409256 Z11.4 Viral scre ening status 710027229 Z11.59 Hypertensive disorder 38 092027 I10 Allergic rhinitis 144982 04 J30.9 Uncontroll ed type 2 diabetes mellitus 832439287 E11.65 Body mass index 40+ - severely obese 734723971 Z68.41 Health Concerns Section Related Observation LastModified by Organization Detai ls LastModified Time None Recorded Concern Status LastModified by Organization Details LastModified Time None Recorded Payers Encounter Date Sequence Insurance Name Policy Number Policy [place] Covered Member ID Whealtey Member ID Guarantor Name 12/17/2024 1 [facility] (MEDICAID HMO) Angelika Astorga [id number] Angelika Astorga Notes Date Note Type Note Provider Name and Address Organization Details Recorded Time 12/17/2024 text/html pt here today fo r medication refills. pt states shes doing well on current medication regime and has no new complaints today. A1C 6.0, 6.3 at last visit. pt has lost 11 lbs since last visit. pt is prescribed ozempic. Sary Jeter APRN [address] [place] [address], [phone], [facility] 12/17/2024 16:32:36 OBGyn Episode No OBEpisode recorded.
--- NOTE | 2025-01-09 13:45 | CA_ITS ---
APPROVED REPORT EXAM: Comprehensive 2D, Doppler, and color-flow Echocardiogram Personnel Specialist: Lexus Pereira RVT Ht: 5 ft 0 in Wt: 223lbs BSA: 1.96 BP: 121/80 mmHg Indications: HFrEF 2D Dimensions LA Volume 20.50 mL LA Volume Index 10.46 mL/m2 (M/F) 16-34 M-Mode Dimensions RVDd 2.24 cm (0.9-2.6) LA Diam 3.03 cm (1.9-4.0) LVDd 4.86 cm (3.5-5.7) LVDs 3.38 cm (3.5-5.7) IVSd 0.76 cm (0.6-1.1) PWd 0.46 cm (0.6-1.1) EF (Teich) 57.70% FS 30.50% EDV (Teich) 110.70 mL ESV (Teich) 46.80 mL LV Diastology E Decel Time 150 (160-240 msec) E/A Ratio 0.8 Aortic Valve EV Index 1.40 cm2/m2 AoV Peak [place]. 99.0 (50-130 cm/s) AO Peak GR. 3.90 mmHg AO Mean GR. 2.30 (<5 mmHg) AO VTI 16.1 (18-25 cm) EV (VTI) 2.80 (2.5-4.5 cm2) Mitral Valve MV E Max [place]. 68.0 (40-130 cm/s) MV A Velocity 87.0 (40-130 cm/s) E/A Ratio 0.78 MV PHT 44.0 ms Pulmonary Valve PV Peak Velocity 66.0 (50-150 cm/s) Left Ventricle The left ventricle is normal size. The left ventricular systolic function is mildly reduced. There is normal left ventricular wall thickness. There is moderate hypokinesis of the inferior and inferolateral LV steiner. Grade 1 diastolic dysfunction is present. LVEF is 45%. Right Ventricle The right ventricle is normal size. The right ventricular systolic function is normal. Atria The left atrium size is normal. The right atrium size is normal. There is no Doppler evidence of interatrial shunt. Aortic Valve The aortic valve opens well. There is no aortic valvular stenosis. No aortic regurgitation is present. Mitral Valve The mitral valve is normal in structure. No evidence of mitral valve stenosis. There is no mitral valve regurgitation noted. Tricuspid Valve Tricuspid valve is grossly normal in structure and function. Trace tricuspid regurgitation. There is insufficient TR jet to estimate RVSP. Pulmonic Valve The pulmonary valve is normal in structure. Trace pulmonic regurgitation. Great Vessels The aortic root is normal in size. IVC is normal in size and collapses >50% with inspiration. Pericardium There is no pericardial effusion. Other Information Study Quality: Fair Conclusion Mildly reduced LV systolic function (LVEF 45%). Moderate hypokinesis of the inferior and inferolateral LV steiner. No significant valvular stenosis or regurgitation. Electronically signed by : Fatemeh Valentin MD 01/13/2025 19:09:12
== END 2025-01-09 23:59 | disposition home or self-care (01) ==
LOC: RT 13:40
PROVIDERS: PCP Nurse Practitioner; Visit Provider Physician Assistant
DX: I11.0 Hypertensive heart disease with heart failure (principal); I50.20 Unspecified systolic (congestive) heart failure; I47.29 Other ventricular tachycardia; I49.3 Ventricular premature depolarization; R94.31 Abnormal electrocardiogram [ECG] [EKG]; R93.1 Abnormal findings on diagnostic imaging of heart and coronary circulation
CPT/HCPCS: 93306